=== PATIENT | female | born 1960 | race Caucasian/White ===

== ENCOUNTER 2022-11-05 10:58 | Outpatient (REF) | payer MEDICARE, MEDICAID, SELFPAY ==
--- NOTE | ~2022-11-05 | MM_ITS ---
EXAMINATION: BONE DENSITOMETRY CLINICAL INDICATION: Osteoporosis. COMPARISON: Baseline BD dated 02/22/2008. TECHNIQUE: Using a [employer] DXA System (software version: 13.1) manufactured by [employer], dual-energy x-ray absorptiometry was performed of the lumbar spine and left hip. The images are of good technical quality. Summary results are attached. FINDINGS: AP SPINE L1-L2 (excluding L3 and L4): The data of L1-L4 has been changed to exclude the L3 and L4 vertebral bodies, because metallic hardware at these levels may cause overestimation of lumbar spine density. Current: BMD 0.844 g/cm2, Z-score -1.1, T-score -2.7, osteoporosis, 12.1% decrease from baseline (<5% change is not significant). Baseline: BMD 0.960 g/cm2. LEFT FEMUR, NECK: Current: BMD 0.674 g/cm2, Z-score -1.1, T-score -2.6, osteoporosis. Baseline: BMD 0.967 g/cm2. LEFT FEMUR, TOTAL: Current: BMD 0.657 g/cm2, Z-score -1.6, T-score -2.8, osteoporosis, 30.6% decrease from baseline (<5% change is not significant). Baseline: BMD 0.947 g/cm2. IDENTIFIED RISK FACTORS: Early menopause, height loss, bilateral oophorectomy, history of fracture (adult), hysterectomy, low calcium intake, tobacco use (current smoker), secondary osteoporosis. HISTORY OF FRACTURE: Shoulder. MEDICATIONS: None listed. MM/XR DEXA axial skeleton IMPRESSION: 1. DIAGNOSIS: Severe osteoporosis based on the lowest T-score value of -2.8 in the total femur and history of fracture of shoulder applying World Health Organization criteria. 2. 10-YEAR FRACTURE RISK PREDICTION, FRAX: According to the guidelines, FRAX calculation should only be performed on patients in the osteopenia bone density category. Therefore, FRAX was not performed on this patient. 3. Treatment Recommendations: NOF guidelines recommend consideration for treatment in postmenopausal women and men age 50 and older presenting with the following: -A hip or vertebral (clinical or morphometric) fracture. -T-score less than or equal to -2.5 at the femoral neck or spine after appropriate evaluation to exclude secondary causes. -Low bone mass at the hip or spine and a 10-year fracture probability by FRAX of greater than or equal to 3% for hip fracture or greater than or equal to 20% for major osteoporotic fracture based on the [place] adapted WHO algorithm. 4. Other Recommendations: All treatment decisions require clinical judgment and consideration of individual patient factors, including patient preferences, comorbidities, previous drug use, risk factors not captured in the FRAX model (e.g. frailty, falls, vitamin D deficiency, increased bone turnover, interval significant decline in bone density) and possible under or overestimation of fracture risk by FRAX. Additional medical evaluation for secondary cause of low bone mineral density may be appropriate. FUTURE SCAN RECOMMENDATION: People with diagnosed cases of osteoporosis or at high risk for fracture should have regular bone mineral density tests. For patients eligible for Medicare, routine testing is allowed once every 2 years. The testing frequency can be increased to one year for patients who have rapidly progressing disease, those who are receiving or discontinuing medical therapy to restore bone mass, or have additional risk factors.
== END 2022-11-05 10:59 | disposition home or self-care (01) ==
LOC: HO.MAMMO 10:58
PROVIDERS: PCP Internal Medicine; Visit Provider Internal Medicine
DX: Z13.820 Encounter for screening for osteoporosis (principal); Z78.0 Asymptomatic menopausal state; M54.12 Radiculopathy, cervical region
CPT/HCPCS: 77080

== ENCOUNTER 2023-05-03 11:48 | Outpatient (REF) | payer MEDICARE, MEDICAID, SELFPAY ==
--- NOTE | ~2023-05-03 | XR_ITS ---
EXAMINATION: XR FOOT, RIGHT CLINICAL INFORMATION: Right great toe pain COMPARISON: None available. TECHNIQUE: AP, lateral, and oblique views of the right foot. FINDINGS: Bone alignment is normal. No fracture or dislocation. Disc spaces are normal. There is soft tissue swelling of the distal great toe. There are several adjacent small radiopaque soft tissue densities, largest measuring 2 mm, projecting over the soft tissues of the distal phalanx of the great toe, question associated with the nail bed. XR/XR foot RT min 3V IMPRESSION: Soft tissue swelling of the distal great toe and several adjacent small radiopaque soft tissue densities, question related to the nail bed.
== END 2023-05-03 11:49 | disposition home or self-care (01) ==
LOC: HO.HHCX 11:48
PROVIDERS: Visit Provider Emergency Medicine
DX: M79.674 Pain in right toe(s) (principal); L30.9 Dermatitis, unspecified
CPT/HCPCS: 73630

== ENCOUNTER 2023-05-12 13:59 | Outpatient (REF) | payer MEDICARE, MEDICAID, SELFPAY ==
[2023-05-12 16:43] LABS: Anion Gap 12 (12-20); Blood Urea Nitrogen 13 mg/dL (9-16); Calcium 9.7 mg/dL (8.4-10.2); Carbon Dioxide 30 mmol/L (22-29); Chloride 104 mmol/L (96-108); Estimated Glomerular Filt Rate > 60; Glucose Random 104 mg/dL (60-115); Sodium 142 mmol/L (135-145)
== END 2023-05-12 14:00 | disposition home or self-care (01) ==
LOC: HO.HHCL 13:59
PROVIDERS: Visit Provider Internal Medicine
DX: Z13.89 Encounter for screening for other disorder (principal)
CPT/HCPCS: 36415; 80048; 82306

== ENCOUNTER 2023-05-12 14:07 | Outpatient (REF) | payer MEDICARE, MEDICAID, SELFPAY ==
--- NOTE | ~2023-05-12 | XR_ITS ---
EXAMINATION: XR HIP, LEFT CLINICAL INFORMATION: Radiculopathy. Pain. COMPARISON: None available. TECHNIQUE: Two views of the left hip. FINDINGS: No fracture. Alignment is anatomic. Hip joint space is maintained. Soft tissues are unremarkable. XR/XR hip LT min 2V IMPRESSION: Normal left hip.
--- NOTE | ~2023-05-12 | XR_ITS ---
EXAMINATION: Bilateral knee replacement CLINICAL INFORMATION: Pain COMPARISON: None. TECHNIQUE: 2 views of each knee FINDINGS: Right: Bone alignment is normal. No fracture or dislocation. Normal joint spaces. No joint effusion. Left: Bone alignment is normal. No fracture or dislocation. Normal joint spaces. No joint effusion. Soft tissue calcification or ossification adjacent to the medial tibial plateau likely related to old trauma to the medial collateral ligament. XR/XR knee LT 2V IMPRESSION: No acute findings. Question old trauma to the left medial collateral ligament otherwise unremarkable exam.
--- NOTE | ~2023-05-12 | XR_ITS ---
EXAMINATION: XR LUMBOSACRAL SPINE WITH OBLIQUES CLINICAL INFORMATION: Radiculopathy and pain COMPARISON: None available. TECHNIQUE: AP, both oblique, and lateral views of the lumbar spine. Lateral view of the lumbosacral junction. FINDINGS: Mild curvature of the lumbar sacral spine to the right. Bone alignment otherwise normal. No fracture or dislocation. Postsurgical changes with disc hardware at L4-L5. Disc spaces are otherwise normal. Lower lumbar spine facet arthritis. Atherosclerotic disease. XR/XR lumbar spine 4V min IMPRESSION: Postsurgical changes at L4-L5. Lower lumbar facet arthritis.
--- NOTE | ~2023-05-12 | XR_ITS ---
EXAMINATION: Bilateral knee replacement CLINICAL INFORMATION: Pain COMPARISON: None. TECHNIQUE: 2 views of each knee FINDINGS: Right: Bone alignment is normal. No fracture or dislocation. Normal joint spaces. No joint effusion. Left: Bone alignment is normal. No fracture or dislocation. Normal joint spaces. No joint effusion. Soft tissue calcification or ossification adjacent to the medial tibial plateau likely related to old trauma to the medial collateral ligament. XR/XR knee RT 2V IMPRESSION: No acute findings. Question old trauma to the left medial collateral ligament otherwise unremarkable exam.
== END 2023-05-12 14:08 | disposition home or self-care (01) ==
LOC: HO.HHCX 14:07
PROVIDERS: Visit Provider Internal Medicine
DX: M54.10 Radiculopathy, site unspecified (principal); M25.552 Pain in left hip; M25.561 Pain in right knee; M25.562 Pain in left knee; G89.29 Other chronic pain; M81.8 Other osteoporosis without current pathological fracture
CPT/HCPCS: 36415; 72110; 73502; 73560; 80048; 82306

== ENCOUNTER 2024-01-12 11:36 | Outpatient (REF) | payer MEDICARE, MEDICAID, SELFPAY ==
[2024-01-12 13:16] LABS: MANUAL DIFF FLAG NO
[2024-01-12 13:28] LABS: Basophils Absolute Auto 0.1 X10*3/uL (0.0-0.2); Basophils Percent Auto 0.7 % (0-2); Eosinophils Absolute Auto 0.3 X10*3/uL (0.0-0.4); Eosinophils Percent Auto 2.4 % (0-4); Hematocrit 34.3 % (37.0-47.0); Hemoglobin 10.9 g/dl (12.0-16.0); Imm Gran Abs Auto 0.04 X10*3/uL (0.00-0.03); Imm Gran Pct Auto 0.4 % (0.0-0.4); Lymphocytes Absolute Auto 2.9 X10*3/uL (1.2-4.9); Lymphocytes Percent Auto 27.2 % (20-40); Mean Corpuscular HGB Conc 31.8 g/dl (31.0-35.0); Mean Corpuscular Hemoglobin 28.2 pg (27.0-33.0); Mean Corpuscular Volume 88.9 fL (80.0-98.0); Mean Platelet Volume 9.2 fL (9.4-12.3); Monocytes Absolute Auto 0.8 X10*3/uL (0.1-1.2); Monocytes Percent Auto 7.8 % (2-11); Neutrophils Absolute Auto 6.6 x10*3/uL (2.0-8.3); Neutrophils Percent Auto 61.5 % (45-73); Platelet Count 617 X10*3/uL (160-400); Red Blood Count 3.86 X10*6/uL (4.20-5.50); Red Cell Distribution Width 13.3 % (11.0-16.0); White Blood Count 10.8 X10*3/uL (4.8-10.8)
[2024-01-12 14:01] LABS: Alanine Aminotransferase 13 U/L (0-31); Alkaline Phosphatase 98 U/L (39-117); Amylase 27 U/L (28-100); Anion Gap 9 (12-20); Aspartate Amino Transferase 19 U/L (5-31); Bilirubin Total 0.2 mg/dL (0.0-1.0); Blood Urea Nitrogen 14 mg/dL (9-16); Calcium 9.7 mg/dL (8.4-10.2); Carbon Dioxide 31 mmol/L (22-29); Chloride 102 mmol/L (96-108); Estimated Glomerular Filt Rate > 60; Glucose Random 85 mg/dL (60-115); Lipase 9 U/L (8-78); Potassium 3.6 mmol/L (3.3-5.1); Sodium 138 mmol/L (135-145)
[2024-01-12 14:21] LABS: Erythrocyte Sedimentation Rate 88 MM/HR (0-20)
== END 2024-01-12 11:37 | disposition home or self-care (01) ==
LOC: HO.HHCL 11:36
PROVIDERS: Visit Provider Internal Medicine
DX: R10.11 Right upper quadrant pain (principal); R10.12 Left upper quadrant pain; K80.63 Calculus of gallbladder and bile duct with acute cholecystitis with obstruction
CPT/HCPCS: 36415; 80053; 82150; 83690; 85025; 85652

== ENCOUNTER 2024-01-16 16:03 | Outpatient (REF) | payer MEDICARE, MEDICAID, SELFPAY ==
--- NOTE | ~2024-01-16 | US_ITS ---
EXAMINATION: US ABDOMEN COMPLETE CLINICAL INFORMATION: Upper abdominal pain, s/p cholecystectomy. COMPARISON: None available. TECHNIQUE: Real-time imaging of the abdominal viscera. Limited visualization due to bowel gas. FINDINGS: PANCREAS: Limited visualization of pancreatic tail and head. Imaged portion of pancreatic body is unremarkable. ABDOMINAL AORTA: Unremarkable. INFERIOR VENA CAVA: Visualized portions are normal. LIVER: Mild intrahepatic biliary ductal dilatation. Air within intrahepatic bile ducts. Limited visualization. Hepatic parenchymal echogenicity is unremarkable. GALLBLADDER: Gallbladder is surgically absent. COMMON BILE DUCT: Stent present within extrahepatic bile duct. Common duct measures 0.8-0.9 cm in diameter. Limited visualization due to bowel gas. RIGHT KIDNEY: No hydronephrosis. No renal calculi. Limited visualization. The kidney measures 11.7 cm in maximum dimension. LEFT KIDNEY: No hydronephrosis. No renal calculi. Limited visualization. The kidney measures 10.1 cm in maximum dimension. SPLEEN: Normal. The spleen measures 8.9 cm in maximum dimension. FREE FLUID: Small amount of free fluid adjacent to the lower aspect of the liver. US/US abdomen complete IMPRESSION: 1. Status post cholecystectomy. Mild intrahepatic biliary ductal dilatation. Air within intrahepatic bile ducts. Common duct measures 0.8-0.9 cm in diameter. Stent present within extrahepatic bile duct. 2. Small amount of free fluid adjacent to the lower aspect of the liver. This study was presented today January 17, 2024 for interpretation. Stat results provided at this time as requested by referring provider.
== END 2024-01-16 16:04 | disposition home or self-care (01) ==
LOC: HO.US 16:03
PROVIDERS: PCP Internal Medicine; Visit Provider Internal Medicine
DX: R10.11 Right upper quadrant pain (principal); R10.12 Left upper quadrant pain; K80.63 Calculus of gallbladder and bile duct with acute cholecystitis with obstruction
CPT/HCPCS: 76700

== ENCOUNTER 2024-09-14 13:44 | Outpatient (REF) | payer MEDICARE, MEDICAID, SELFPAY ==
--- NOTE | ~2024-09-14 | XR_ITS ---
EXAMINATION: XR CHEST CLINICAL INFORMATION: dyspnea on exertion COMPARISON: None available. TECHNIQUE: 2 views of the chest were obtained. FINDINGS: No significant abnormality is noted involving the heart, lungs, mediastinum, bony thorax or soft tissues. Status post right shoulder total arthroplasty XR/XR chest 2V IMPRESSION: Unremarkable examination. Electronically signed by: Leo Castillo MD 09/16/2024 11:01 AM MAK
--- OUTSIDE RECORDS SUMMARY | 2024-09-14 13:46 | XMS_ITS | Continuity of Care Document ---
Author Organization [facility] Diabetes Address [address] [place] [address]- Care Team Providers Care Vessel Welder Name Role Phone Melinda Durham MD, Rosemarie Mendez Primary Care Physici an [id number] Date(s): 05/03/24 - 08/31/24 [facility] Diabetes [address] [place] [id number] Attending Physician: Gloria Jameson MD Admitting Physician: Gloria Jameson MD Referring Physician: Rosemarie Murillo MD Encounter Type: Pre-OutPatient One Time Allergies, Adverse Reactions, Alerts Substance Criticality Severity Reaction Reaction Severity Status Atarax tongue swells Active Topamax headaches Active Keppra severe headaches Act jose LaMICtal severe headaches Act jose Immunizations Given and Recorded Vaccine Date Status Refusal Reason pneumococcal 23-valent vaccine 03/17/12 Given influenza virus vaccine, inactivated 1 07/27/10 Gi alli 1Admin Note: per pt she received it at [facility] this year Medications amLODIPine 5 mg oral tablet 0 Refills, Maintenance, 03/08/24 11:11:00 AM EDT, Partial fill upon patient request if the prescription is for a schedule II opioid drug. Start Date: 03/08/24 Status: Ordered Repeat number: 1 aspirin 81 mg oral capsule 1 capsule = 81 mg, By Mouth, Daily, do not exceed 48 capsules in 24 hours, # 30 capsule, 0 Refills,Maintenance, 03/28/24 10:53:00 AM EDT, Capsule, Partial fill upon patient request if the prescriptionis for a schedule II opioid drug. Start Date: 03/28/24 Status: Ordered Quantity: 30.0 Unit: capsule Repeat number: 1 calcium (as carbonate)-vitamin D 600 mg-62.5 mcg (2500 intl units) oral capsule 2 capsule, By Mouth, Daily, # 120 capsule, 0 Refills, Maintenance, 03/28/24 10:52:00 AM EDT, Capsule,Partial fill upon patient request if the prescription is for a schedule II opioid drug. Start Date: 03/28/24 Status: Ordered Quantity: 120.0 Unit: capsule Repeat number: 1 citalopram 20 mg oral tablet 20 mg, 1, tablet, By Mouth, Daily, # 30 tablet, Refills 0, Maintenance, 07/27/23 1:37:00 PM EDT, Partial fill upon patient request if the prescription is for a schedule II opioid drug. Start Date: 07/27/23 Status: Ordered Quantity: 30.0 Unit: tablet Repeat number: 1 fluticasone/umeclidinium/vilanterol 100 mcg-62.5 mcg-25 mcg/inh inhalation powder 1 puffs, Inhalation, Daily, at the same time every day, # 60 each, 11 Refills, Maintenance, 04/16/2412:07:00 PM EDT, Powder, [facility]/pharmacy #[id number], Partial fill upon patient request if the prescription is for a schedule II opioid drug., 170, cm, 03/28/24 10:53:00 EDT, Height, 61.5, kg, 03/08/24 11:15:00 EDT, Dry Weight Start Date: 04/16/24 Status: Ordered Quantity: 60.0 Unit: each Repeat number: 12 morphine 30 mg/12 to 24 hr oral capsule, extended release = 30 mg, By Mouth, Every 12 hours, # 10 capsule, 0 Refills, Maintenance, 01/05/19 6:36:02 AM EDT, ERCapsule Start Date: 01/05/19 Status: Ordered Quantity: 10.0 Unit: capsule Repeat number: 1 oxyCODONE 10 mg oral tablet 2 tablet = 20 mg, By Mouth, Every 8 hours, PRN as needed for pain, 0 Refills, Maintenance, 01/28/21 1:39:00 PM EDT, Tablet, Partial fill upon patient request if the prescription is for a schedule II opioid drug. Start Date: 01/28/21 Status: Ordered Repeat number: 1 simvastatin 20 mg oral tablet 20 mg, 1, tablet, By Mouth, Daily at bedtime, Refills 0, Maintenance, 12/26/18 11:36:49 AM EDT Start Date: 12/26/18 Status: Ordered Repeat number: 1 simvastatin 20 mg oral tablet 20 mg, 1, tablet, By Mouth, Daily at bedtime, # 30 tablet, Refills 0, Maintenance, 12/24/23 2:14:00 AM EDT, Partial fill upon patient request if the prescription is for a schedule II opioid drug. Start Date: 12/24/23 Status: Ordered Quantity: 30.0 Unit: tablet Repeat number: 1 Vitamin D3 oral tablet 1 tablet = 10 mcg, By Mouth, Daily, # 30 tablet, 0 Refills, Maintenance, 12/24/23 4:25:00 AM EDT, Tablet, Partial fill upon patient request if the prescription is for a schedule II opioid drug. Start Date: 12/24/23 Status: Ordered Quantity: 30.0 Unit: tablet Repeat number: 1 Problem List Condition Confirmation Course Effective Dates Status H ealth Status Informant Abdominal hysterectomy Confirmed Active ; Anxiety Confirmed Active Cervical post-laminectomy syndrome Confirmed Active Cervical spinal fusion 1 Confirmed 12/09/08 Active ; Chronic pain Confirmed Active Cigarette smoker Confirmed Active Cocaine dependence in remission Confirmed Active Decompression laminectomy of lumbar spine 2 Confirmed 08/18/09 Active Depression Confirmed Active Drug interaction 3 Confirmed Active Drug-induced constipation Confirmed Active Failed back syndrome Confirmed Active FH - Alcoholism 4 Confirmed Active Fibromyalgia Confirmed Active Fusion of lumbar spine 5 Confirmed 05/22/09 Active Hip pain Confirmed Active Hyperlipidemia Confirmed Active IBS - Irritable bowel syndrome Confirmed Active Myofascial pain Confirmed Active Neck pain Confirmed Active Neuropathic pain 6 Confirmed Active Not getting enough sleep Confirmed Active Osteoporosis Confirmed 05/12/23 Active Other Pain Disorders Related to Psychological Factors Confirmed Active PTSD - Post-traumatic stress disorder Confirmed Active COPD type A Confirmed Active Radicular syndrome of lower limbs 7 Confirmed Active Radicular syndrome of upper limbs 8, 9 Confirmed Active 1Anterior cervical C4-C5 disc excision, decompression, interbody fusion with allograft bone wedge and [place] plate and screws; Dr. Vick Mason at [facility] 2L4-5, L3-4 with disc excision L4-5 and exporation L4-5 fusion , Dr. Vick Mason (for new right overleft leg pain following 06/15/09 L4-5 ant/post fusion) 3cholesterol lowering agent, antidepressant, and opioid co treatment (current); history of total CPK>80 and < 190 4and suubstance use 5Anterior partial corpectomy disc excision, interbody fusion with Danek LT titanium cages and InFUSEBMP L4-L5; by Dr. Vick Mason at [facility] 6lower extremity 7left lower extremity in the L5 distribution 8s/p cervical disc surgery 12/09/08 using anterior approach, C4-C5 including bony fusion and hardware/ neck pain improved, resolution of right shoulder and arm pain 9herniation at C4-5, with nerve root impingement at C5 demonstrated on MRI 10/30/08. Pain along the medial scapular border on the right c/w C5 on exam 10/2008 Social History Social History Type Response Tobacco Use: 4 or less cigar ettes(less than 1/4 pack)/day in last 30 days. Other: near daily VAPE use. Sex Sex Representation Female (finding) Patient Care team information Care Team Personnel Name: Melinda Durham MD, Rosemarie Mendez Position: [facility] Outreach Member Role: PCP Address: [address] [place] [address] [address] [place] [phone]- Telecom: Name: Stephanie Carlton NP Position: [facility] PCO Associate Professional Member Role: Primary Care Nurse Address: [address] [place] [phone]- Telecom: Name: Siena Figueroa RN Position: [facility] ED RN W/OE and Tasks Member Role: Primary Care Nurse Care Team Related Persons Name: INDRA CARLTON Name: LATONYA CARLTON Insurance Providers Guarantor name: IGNACIO BIANKA Health Plan Information #: 1 Payer: MEDICARE PART B OUTPT Member Number: [id number] Policy Number: NA Group Number: NA Health Plan Information #: 2 Payer: MEDICARE PART B OUTPT Member Number: [id number] Policy Number: NA Group Number: NA Health Plan Information #: 3 Payer: [facility] Member Number: NA Policy Number: NA Group Number: NA
[2024-09-14 16:13] LABS: MANUAL DIFF FLAG NO
[2024-09-14 16:20] LABS: Basophils Absolute Auto 0.1 X10*3/uL (0.0-0.2); Basophils Percent Auto 1.1 % (0-2); Eosinophils Absolute Auto 0.3 X10*3/uL (0.0-0.4); Eosinophils Percent Auto 3.7 % (0-4); Hematocrit 37.8 % (37.0-47.0); Hemoglobin 12.4 g/dl (12.0-16.0); Imm Gran Abs Auto 0.03 X10*3/uL (0.00-0.03); Imm Gran Pct Auto 0.4 % (0.0-0.4); Lymphocytes Absolute Auto 2.9 X10*3/uL (1.2-4.9); Lymphocytes Percent Auto 34.5 % (20-40); Mean Corpuscular HGB Conc 32.8 g/dl (31.0-35.0); Mean Corpuscular Hemoglobin 27.9 pg (27.0-33.0); Mean Corpuscular Volume 84.9 fL (80.0-98.0); Mean Platelet Volume 9.6 fL (9.4-12.3); Monocytes Absolute Auto 0.8 X10*3/uL (0.1-1.2); Neutrophils Absolute Auto 4.3 x10*3/uL (2.0-8.3); Neutrophils Percent Auto 51.3 % (45-73); Platelet Count 285 X10*3/uL (160-400); Red Blood Count 4.45 X10*6/uL (4.20-5.50); White Blood Count 8.4 X10*3/uL (4.8-10.8)
[2024-09-14 16:39] LABS: Estimated Average Glucose 117 mg/dL; Hemoglobin A1C 122.1028 umol/L; Hemoglobin A1c % 5.7 % (<6.0); Total Hemoglobin (HGBA1C) 3187.8984 umol/L
[2024-09-14 16:47] LABS: B Type Natriuretic Peptide 42 pg/mL (<100)
[2024-09-14 17:09] LABS: Alanine Aminotransferase 21 U/L (0-31); Albumin Level 4.4 g/dL (3.5-5.0); Alkaline Phosphatase 80 U/L (39-117); Anion Gap 11 (12-20); Aspartate Amino Transferase 25 U/L (5-31); Bilirubin Total 0.3 mg/dL (0.0-1.0); Blood Urea Nitrogen 11 mg/dL (9-16); Calcium 9.2 mg/dL (8.4-10.2); Carbon Dioxide 30 mmol/L (22-29); Chloride 105 mmol/L (96-108); Cholesterol 162 mg/dL (<200); Estimated Glomerular Filt Rate > 60; Glucose Random 80 mg/dL (60-115); HDL Cholesterol 57 mg/dL (>40); LDL Cholesterol Calculated 88 mg/dL (<100); Potassium 3.1 mmol/L (3.3-5.1); Sodium 143 mmol/L (135-145); Total Protein 8.2 g/dL (6.5-8.0); Triglycerides 86 mg/dL (<150)
[2024-09-14 17:16] LABS: Alanine Aminotransferase 15 U/L (0-31); Albumin Level 4.4 g/dL (3.5-5.0); Alkaline Phosphatase 80 U/L (39-117); Anion Gap 12 (12-20); Aspartate Amino Transferase 25 U/L (5-31); Bilirubin Total 0.3 mg/dL (0.0-1.0); Blood Urea Nitrogen 12 mg/dL (9-16); Calcium 9.3 mg/dL (8.4-10.2); Carbon Dioxide 29 mmol/L (22-29); Chloride 106 mmol/L (96-108); Cholesterol 162 mg/dL (<200); Estimated Glomerular Filt Rate > 60; Glucose Random 80 mg/dL (60-115); HDL Cholesterol 57 mg/dL (>40); LDL Cholesterol Calculated 88 mg/dL (<100); Potassium 3.5 mmol/L (3.3-5.1); Sodium 143 mmol/L (135-145); Total Protein 8.3 g/dL (6.5-8.0); Triglycerides 85 mg/dL (<150)
[2024-09-14 17:24] LABS: TSH reflex Free T4 1.02 uIU/mL (0.32-4.0)
== END 2024-09-14 13:45 | disposition home or self-care (01) ==
LOC: HO.HHCX 13:44
PROVIDERS: Internal Medicine; Visit Provider Nurse Practitioner Family
DX: Z13.1 Encounter for screening for diabetes mellitus (principal); R60.9 Edema, unspecified; I10 Essential (primary) hypertension; R06.00 Dyspnea, unspecified
CPT/HCPCS: 36415; 71046; 80053; 80061; 83036; 83880; 84443; 85025

== ENCOUNTER 2024-09-14 13:59 | Outpatient (REF) | payer MEDICARE, MEDICAID, SELFPAY ==
--- OUTSIDE RECORDS SUMMARY | 2024-09-14 14:02 | XMS_ITS | Continuity of Care Document ---
Author Organization [facility] Endocrin[facility] gy and Diabetes Address [address] [place] [phone]- Care Team Providers Care Ship Carpenter Name Role Phone Melinda Durham MD, Rosemarie Mendez Primary Care Physici an Encounter [facility] Date(s): 08/01/24 - 08/31/24 [facility] End[facility] [address] [place] [id number] Attending Physician: AdmSubhash lubin Admitting Physician: AdmSubhash lubin Referring Physician: Admtr, [id number] Encounter Type: Triage Allergies, Adverse Reactions, Alerts Substance Criticality Severity Reaction Reaction Severity Status Atarax tongue swells Active LaMICtal severe headaches Act jose Topamax headaches Active Keppra severe headaches Act jose Immunizations Given and Recorded Vaccine Date Status Refusal Reason pneumococcal 23-valent vaccine 03/17/12 Given influenza virus vaccine, inactivated 1 07/27/10 Gi alli 1Admin Note: per pt she received it at [facility] this year Medications amLODIPine 5 mg oral [...] 11 Refills, Maintenance, 04/16/2412:07:00 PM EDT, Powder, [facility]/pharmacy #[id number], Partial fill upon patient request if [...] interbody fusion with allograft bone wedge and [place] plate and screws; Dr. Vick Mason at [facility] 2L4-5, L3-4 with disc excision L4-5 [...] InFUSEBMP L4-L5; by Dr. Vick Mason at [facility] 6lower extremity 7left lower extremity in [...] Name: Melinda Durham MD, Rosemarie Mendez Position: [facility] Outreach Member Role: PCP Address: [address] [place] [address] [address] [place] [phone]- Telecom: Name: Bianka HSIEH, Stephanie Anthony Position: [facility] PCO Associate Professional Member Role: Primary Care Nurse Address: [address] [place] [phone]- Telecom: Name: Siena Figueroa RN Position: [facility] ED RN W/OE and Tasks Member Role: Primary Care Nurse Care Team Related Persons Name: INDRA CARLTON Name: LATONYA CARLTON Insurance Providers Guarantor name: IGNACIO BIANKA Health Plan Information #: 1 Payer: MEDICARE PART B OUTPT Member Number: NA Policy Number: NA Group Number: NA Health Plan Information #: 2 Payer: [facility] Member Number: NA Policy Number: NA Group Number: NA
== END 2024-09-14 14:00 | disposition home or self-care (01) ==
LOC: HO.HHCL 13:59
PROVIDERS: Visit Provider Nurse Practitioner Family
DX: Z13.89 Encounter for screening for other disorder (principal)

== ENCOUNTER 2024-12-28 12:40 | Outpatient (REF) | payer MEDICARE, MEDICAID, SELFPAY ==
--- OUTSIDE RECORDS SUMMARY | 2024-12-28 14:33 | XMS_ITS | Encounter Summary ---
Author Organization [employer] Address [address] [place] [address] [address] [place] [address] Care Team Providers Care Mold Making Pl[employer] Sheets Supervisor Name Role Phone Rosemarie Murillo MD Primary Care Provide r Reason for Visit * Reason Comments Stool Color Change Encounter Details Date Type Department Care Team (Late st Contact Info) Description 12/28/2024 12:00 PM EDT Office Visit [facility] MEDICINE [address] [place], [place] [phone] Sandra Zhao MD [address] [place] [address] RUQ pain (Primary Dx); Seborrheic keratoses; Generalized abdominal pain; Fatty (change of) liver, not elsewhere classified; Encounter for screening for other viral diseases Social History Tobacco Use Types Packs/Day Years Used Date Smoking Tobacco: Former Cigarettes Passive Smoke Exposure: Past Smokeless Tobacco: Never Tobacco Cessation:Counseling Given: Not Answered Alcohol Use Standard Drinks/Week Comments Never 0 (1 standard drink = 0.6 oz pur e alcohol) PHQ-2 Answer Date Recorded Patient Health Questionnaire-2 Score 0 12/09/2022 Alcohol Answer Date Recorded Frequency of Alcohol Consumption Not on file 06/22/2024 Average Number of Drinks Not on file 024 Frequency of Binge Drinking Not on file 05/28 Score 0 06/22/2024 Housing Stability Answer Date Recorded What is your housing situation today? I have jevon jones 01/02/[address] you li ve. Do you have problems with any of the following? None of the above 01/02/2024 Food Insecurity Answer Date Recorded Within the past 12 months, y ou worried that your food would run out before you got money to buy more: Never True 01/02/2024 Within the past 12 months,th e food you bought just didn't last and you didn't have enough money to get more: Never True 04/2024 Transportation Answer Date Recorded In the past 12 months, has l ack of transportation kept you from medical appts, meetings, work or from getting things needed for daily living? No 01/02/2024 Utilities Answer Date Recorded In the past 12 months, has t he electric, gas, oil or water company threatened to shut off services in your home? No 01/02/2024 Depression Answer Date Recorded Patient Health Questionnaire-2 Score 0 01/12/2024 Comments Unknown Sex and Gender Information Value Date Recorded Sex Assigned at Female 07/26/2022 10:19 AM EDT Legal Sex Female 10:19 AM EDT Gender Identity Female 07/26/2022 10:19 AM EDT Sexual Orientation Straight 07/26/2022 10 :19 AM EDT documented as of this encounter Last Filed Vital Signs Vital Sign Reading Time Taken Comments Blood Pressure 124/70 12/28/2024 12:09 PM EDT Pulse 83 12/28/2024 12:09 PM EDT Temperature 36.1 ??C (97 ??F) 12/28/2024 12:09 PM EDT Respiratory Rate 16 12/28/2024 12:09 PM EDT Oxygen Saturation 97% 12/28/2024 12:09 PM EDT Inhaled Oxygen Concentration - - Weight 66.2 kg (146 lb) 12/28/2024 12:09 PM EDT Height 170.2 cm (5' 7 ) 12/28/2024 12:09 PM EDT Body Mass Index 22.87 12/28/2024 12:09 PM EDT documented in this encounter Plan of Treatment Scheduled Orders Name Type Priority Associated Diagnoses Orde r Schedule Hepatic Function Panel Lab Routine Generalized abdominal pain Expected: 12/28/2024 (Approximate), Expires: 12/28/2025 Gamma Glutamyl Transferase (GGT) Lab Routine Generalized abdominal pain Fatty (change of) liver, not elsewhere classified Expected: 12/28/2024 (Approximate), Expires: 12/28/2025 Hepatitis Panel, General Lab Routine Generalized abdominal pain Encounter for screening for other viral diseases Expected: 12/28/2024 (Approximate), Expires: 12/28/2025 Lipase Lab Routine RUQ pain Expected: 12/28/2024, Expires: 12/28/2025 documented as of this encounter Visit Diagnoses Diagnosis RUQ pain- Primary Abdominal pain, right upper quadrant Seborrheic keratoses Generalized abdominal pain Abdominal pain, generalized Fatty (change of) liver, not elsewhere classified Encounter for screening for other viral diseases documented in this encounter Care Teams Mold Making Pl[employer] Sheets Supervisor Relationship Specialty Start Date End Date Rosemarie Murillo MD [address] [place] [id number] PCP - General Family Medicine 04/26/19 documented as of this encounter
--- OUTSIDE RECORDS SUMMARY | 2024-12-28 14:33 | XMS_ITS | Encounter Summary ---
Author Organization [employer] Address [address] [place] [address] [address] [place] [address] Care Team Providers Care Safety Clothing And Equipment Developer Name Role Phone Rosemarie Murillo MD Primary Care Provide r Reason for Visit * Reason Onset Date Comments status 10/20/2022 Encounter Details Date Type Department Care Team (Late st Contact Info) Description 10/20/2022 Refill [facility] [address] [place] [address] Rosemarie Murillo MD [address] [place] [address] Cervical radiculitis Social History Tobacco Use Types Packs/Day Years Used Date Smoking Tobacco: Never Assessed Comments Unknown Sex and Gender Information Value Date Recorded Sex Assigned at Female 07/26/2022 10:19 AM EDT Legal Sex Female 10:19 AM EDT Gender Identity Female 07/26/2022 10:19 AM EDT Sexual Orientation Straight 07/26/2022 10 :19 AM EDT documented as of this encounter Miscellaneous Notes * Telephone Encounter - Frederick Childress - 10/20/2022 1:49 PM EST Tc from pt requesting status on med refill Oxycodone 10 mg and ms contin 30 mg documented in this encounter Plan of Treatment Not on file documented as of this encounter Visit Diagnoses Diagnosis Cervical radiculitis Brachial neuritis or radiculitis nos documented in this encounter Care Teams Safety Clothing And Equipment Developer Relationship Specialty Start Date End Date Rosemarie Murillo MD [address] [place] [address] PCP - General Family Medicine 04/26/19 documented as of this encounter
--- OUTSIDE RECORDS SUMMARY | 2024-12-28 14:33 | XMS_ITS | Encounter Summary ---
Author Organization [employer] Address [address] [place] [address] [address] [place] [address] Care Team Providers Care Manager Operations Name Role Phone Rosemarie Murillo MD Primary Care Provide r Reason for Visit * Reason Onset Date Comments Med Refill 04/25/2024 Encounter Details Date Type Department Care Team (Late st Contact Info) Description 04/25/2024 Refill [facility] [address] [place], [place] [phone] Rosemarie Murillo MD [address] [place] [address] Cervical radiculitis Social History Tobacco Use Types Packs/Day Years Used Date Smoking Tobacco: Former Cigarettes Passive Smoke Exposure: Past Smokeless Tobacco: Never Alcohol Use Standard Drinks/Week Comments Never 0 (1 standard drink = 0.6 oz pur e alcohol) PHQ-2 Answer Date Recorded Patient Health Questionnaire-2 Score 0 12/09/2022 Housing Stability Answer Date Recorded What is [...] AM EDT documented as of this encounter Plan of Treatment Not on file documented as of this encounter Visit Diagnoses Diagnosis Cervical radiculitis Brachial neuritis or radiculitis nos documented in this encounter Care Teams Manager Operations Relationship Specialty Start Date End Date Rosemarie Murillo MD [address] [place] [address] PCP - General Family Medicine 04/26/19 documented as of this encounter
--- OUTSIDE RECORDS SUMMARY | 2024-12-28 14:33 | XMS_ITS | Encounter Summary ---
Author Organization [employer] Address [address] [place] [address] [address] [place] [address] Care Team Providers Care Computer Designer Name Role Phone Rosemarie Murillo MD Primary Care Provide r Encounter Details Date Type Department Care Team (Late st Contact Info) Description 11/11/2022 Orders Only [facility] [address] [place], [place] [phone] Sandra Zhao MD [address] [place] [address] Age related osteoporosis, unspecified pathological fracture presence (Primary Dx) Social History Tobacco Use Types Packs/Day Years Used Date Smoking Tobacco: Every Day Cigarettes Smokeless Tobacco: Never Alcohol Use Standard Drinks/Week Comments Never 0 (1 standard drink = 0.6 oz pur e alcohol) Comments Unknown Sex and Gender Information Value Date Recorded Sex Assigned at Female 07/26/2022 10:19 AM EDT Legal Sex Female 10:19 AM EDT Gender Identity Female 07/26/2022 10:19 AM EDT Sexual Orientation Straight 07/26/2022 10 :19 AM EDT COVID-19 Exposure Response Date Recorded In the last 10 days, have yo u been in contact with someone who was confirmed or suspected to have Coronavirus/COVID-19? No / Unsure 10/29/2022 2:46 PM EST documented as of this encounter Plan of Treatment Scheduled Orders Name Type Priority Associated Diagnoses Orde r Schedule Vitamin D, 25-Hydroxy, Total, Immunoassay Lab Routine Age related osteoporosis, unspecified pathological fracture presence Expected: 05/11/2023, Expires: 11/11/2023 documented as of this encounter Visit Diagnoses Diagnosis Age related osteoporosis, unspecified pathological fracture presence- Primary documented in this encounter Care Teams Computer Designer Relationship Specialty Start Date End Date Rosemarie Murillo MD [address] [place] [id number] PCP - General Family Medicine 04/26/19 documented as of this encounter
--- OUTSIDE RECORDS SUMMARY | 2024-12-28 14:33 | XMS_ITS | Encounter Summary ---
Author Organization [employer] Address [address] [place] [address] [address] [place] [address] Care Team Providers Care Senior Administrative Services Officer Name Role Phone Rosemarie Murillo MD Primary Care Provide r Reason for Visit * Reason Onset Date Comments Med Refill 08/10/2024 Encounter Details Date Type Department Care Team (Late st Contact Info) Description 08/10/2024 Refill [facility] [address] [place], [place] [phone] Rosemarie Murillo MD [address] [place] [address] Cervical radiculitis Social History Tobacco Use Types [...] your housing situation today? I have jevon karen 01/02/[address] you li [...] nos documented in this encounter Care Teams Senior Administrative Services Officer Relationship Specialty Start Date End Date Rosemarie Murillo MD [address] [place] [id number] PCP - General Family Medicine 04/26/19 documented as of this encounter
--- OUTSIDE RECORDS SUMMARY | 2024-12-28 14:33 | XMS_ITS | Encounter Summary ---
Author Organization [employer] Address [address] [facility] [address] [place] [address] Care Team Providers Care Science Instructor Name Role Phone Rosemarie Murillo MD Primary Care Provide r Encounter Details Date Type Department Care Team (Latest Contact Info) Description 12/25/2024 Travel Social History Tobacco Use Types Packs/Day Years [...] is your housing situation today? I have jevno jones 01/02/[address] you [...] documented as of this encounter Visit Diagnoses Not on filedocumented in this encounter Care Teams Science Instructor Relationship Specialty Start Date End Date Rosemarie Murillo MD [address] [place] [address] PCP - General Family Medicine 04/26/19 documented as of this encounter
--- OUTSIDE RECORDS SUMMARY | 2024-12-28 14:33 | XMS_ITS | Clinical Summary ---
Author Organization [employer] Address [address] [place] [address] [address] [place] [address] Care Team Providers Care Quick Sketch Artist Name Role Phone Rosemarie Murillo MD Primary Care Provide r Allergies Active Allergy Reactions Criticality Noted Date Comments Hydroxyzine Swelling 11/20/2010 Other reaction(s): tongue swells Lamotrigine 09/21/2022 Other reaction(s): severe headaches Levetiracetam 09/21/2022 Other reaction(s): severe headaches Topiramate 09/21/2022 Other reaction(s): headaches Medications albuterol (2.5 MG/3ML) 0.083% nebulizer solution See Instructions , USE 1 VIAL IN NEBULIZER 4 TIMES DAILY, # 120 each, 11 Refills, Maintenance, 07/27/22 12:06:00 EDT, [facility], 169, cm, 07/12/22 10:26:00 EDT, Height, 56.5, kg, 04/30/22 20:06:00 EDT, Dry Weight 03/02/20 19 Active albuterol 108 (90 Base) MCG/ACT inhalerIndicati ons:Pulmonary emphysema, unspecified emphysema type (CMS/HCC) INHALE 2 PUFFS BY MOUTH 4 TIMES A DAY NEEDED FOR WHEEZING/SALLIE RTNESS OF BREATH 18 g 3 09/21/20 22 Active Trelegy Ellipta 100-62.5-25 MCG/ACT aerosol powder INHALE 1 PUFF BY MOUTH DAILY AT THE SAME TIME EVERYDAY 12/15/19 24 Active Cholecalciferol (Vitamin D3) 1000 units capsule Take 1 capsule by mouth Once daily. OTC 08/01/20 23 Active Calcium Carbonate (CALCIUM 600 PO) Take 1 capsule by mouth 2 times daily. OTC Active triamcinolone (Kenalog) 0.1 % creamIndication s:Dermatitis APPLY TOPICALLY IF NEEDED IN THE MORNING AND AT BEDTIME (PAIN AND SWELLING). 30 g 2 06/19/20 24 Active amLODIPine (Norvasc) 5 MG tabletIndicatio ns:Primary hypertension TAKE 1 TABLET BY MOUTH EVERY DAY IN THE MORNING 90 tablet 1 10/30/19 25 Active lidocaine (Lidoderm) 5 % patchIndication s:Chronic midline thoracic back pain APPLY 1 PATCH IN THE MORNING REMOVE AND DISCARD PATCH WITHIN 12 HOURS OR DIRECTED 30 patch 1 11/13/19 25 Active citalopram (CeleXA) 20 MG tabletIndicatio ns:Chronic recurrent major depressive disorder (CMS/HCC) TAKE 1 TABLET BY MOUTH EVERY DAY IN THE MORNING 90 tablet 12/14/19 25 Active simvastatin (Zocor) 20 MG tablet TAKE 1 TABLET BY MOUTH EVERY DAY IN THE EVENING 90 tablet 12/14/19 25 Active oxyCODONE (Roxicodone) 10 MG immediate release tabletIndicatio ns:ok to fill early per pcp Dr Fraga, please fill 10/21/22 Take 2 tablets (20 mg) by mouth every 8 (eight) hours if needed for severe pain for up to 28 days. 168 tablet 12/29/19 25 025 Active morphine CR (MS Contin) 30 MG 12 hr tabletIndicatio ns:ok to fill early per pcp Dr Fraga, please fill 10/21/22. Take 1 tablet (30 mg) by mouth every 12 (twelve) hours for 28 days. 56 tablet 12/29/19 25 025 Active citalopram (CeleXA) 20 MG tabletIndicatio ns:Chronic recurrent major depressive disorder (CMS/HCC) TAKE 1 TABLET BY MOUTH EVERY DAY IN THE MORNING 90 tablet 07/17/20 24 025 Discontinued simvastatin (Zocor) 20 MG tablet TAKE 1 TABLET BY MOUTH EVERY EVENING 90 tablet 09/12/20 24 025 Discontinued oxyCODONE (Roxicodone) 10 MG immediate release tabletIndicatio ns:ok to fill early per pcp Dr Fraga, please fill 10/21/22 Take 2 tablets (20 mg) by mouth every 8 (eight) hours if needed for severe pain for up to 28 days. Do not start before November 06, 2024. 168 tablet 11/06/19 25 025 Discontinued(Re order (will not trigger notification to Pharmacy)) morphine CR (MS Contin) 30 MG 12 hr tabletIndicatio ns:ok to fill early per pcp Dr Fraga, please fill 10/21/22. Take 1 tablet (30 mg) by mouth every 12 (twelve) hours for 28 days. Do not start before November 06, 2024. 56 tablet 11/06/19 25 025 Discontinued(Re order (will not trigger notification to Pharmacy)) oxyCODONE (Roxicodone) 10 MG immediate release tabletIndicatio ns:ok to fill early per pcp Dr Fraga, please fill 10/21/22 Take 2 tablets (20 mg) by mouth every 8 (eight) hours if needed for severe pain for up to 28 days. 168 tablet 11/30/19 25 025 Discontinued(Re order (will not trigger notification to Pharmacy)) morphine CR (MS Contin) 30 MG 12 hr tabletIndicatio ns:ok to fill early per pcp Dr Fraga, please fill 10/21/22. Take 1 tablet (30 mg) by mouth every 12 (twelve) hours for 28 days. 56 tablet 11/30/19 25 025 Discontinued(Re order (will not trigger notification to Pharmacy)) Active Problems Problem Noted Date Diagnosed Date terminologist (current) use of opiate analgesic 11/24 Edema 09/14/2024 Assessment & Plan (09/15/2024 12:20 PM EST): Bilateral edema, worse at end of day, due to associated dyspnea will order chest x-ray Possible s/e of amlodipine, Continue with compression stockings Pending labs and imaging consider echo Dyspnea 09/14/2024 Asymptomatic menopausal state 06/22/2024 Acute left ankle pain 06/22/2024 Assessment & Plan (06/22/2024 3:09 PM EDT): Patient will be contacted with results Neck pain 06/22/2024 Chronic bilateral low back pain with bilateral s ciatica 06/22/2024 History of abdominal hysterectomy 03/05/2024 Calculus of gallbladder and bile duct with acute cholecystitis, with obstruction 01/12/2024 Assessment & Plan (01/12/2024 1:48 PM EDT): S/p CCY 2 wks ago History of laparoscopic cholecystectomy 01/12/20 Assessment & Plan (01/12/2024 1:49 PM EDT): 2 wks ago, MONIQUE drain is out. R/o other obstructive syndormes Acute bilateral upper abdominal pain 01/12/2024 Assessment & Plan (01/12/2024 1:58 PM EDT): R/o choledocholithiasis Order labs and urgent abd US I gave information about liquid diet and advanced to soft diet as tolerated Prescription for zofran AC meals, if Sx do not improve she should go to ED Depression with anxiety 11/25/2023 Assessment & Plan (03/06/2024 1:34 PM EDT): Stable, c/w citalopram 20mg daily Assessment & Plan (11/25/2023 12:10 PM EST): Controlled c/w current interventions Encounter for preventive care 06/21/2023 Assessment & Plan (06/24/2023 3:18 PM EDT): See HPI Colon cancer screening 06/21/2023 Encounter for screening mamm ogram for malignant neoplasm of breast 06/21/2023 Primary hypertension 06/21/2023 Assessment & Plan (09/15/2024 12:21 PM EST): Above goal, pt will continue to monitor at home. May take 10 mg of amlodipine for bps >160/>100. Labs as ordered below, EKG wnl Pt has scheduled follow up with pcp Assessment & Plan (06/22/2024 3:08 PM EDT): Slightly elevated today I advise low Na diet, take medications as prescribed and monitor BP at home Assessment & Plan (03/06/2024 1:33 PM EDT): Controlled c/w same medication and low Na diet Assessment & Plan (11/25/2023 12:10 PM EST): Maintenance: BMP: up to date Lipid Panel: up to date - Aerobic exercise to reduce BP. Initial goal of 30 min walk 3-5x/week. Increase as tolerated. - low-sodium diet (goal: <2g/day) and heart healthy diet such as DASH to reduce BP and prevent ASCVD. - Home BP monitoring 1-2 x day with goal of <140/90. - Seek immediate medical attention for chest pain, palpitations, SOB, syncope, or sudden changes in mental status. - Do not change or discontinue current prescriptions without first consulting health care provider Assessment & Plan (09/16/2023 4:23 PM EST): - Aerobic exercise to reduce BP. Initial goal of 30 min walk 3-5x/week. Increase as tolerated. - low-sodium diet (goal: <2g/day) and heart healthy diet such as DASH to reduce BP and prevent ASCVD. - Home BP monitoring 1-2 x day with goal of <140/90. - Seek immediate medical attention for chest pain, palpitations, SOB, syncope, or sudden changes in mental status. - Do not change or discontinue current prescriptions without first consulting health care provider Assessment & Plan (06/24/2023 3:16 PM EDT): It has being notice her blood pressure persistently elevated I will start her on amlodipine 5mg daily - Aerobic exercise to reduce BP. Initial goal of 30 min walk 3-5x/week. Increase as tolerated. - low-sodium diet (goal: <2g/day) and heart healthy diet such as DASH to reduce BP and prevent ASCVD. - Home BP monitoring 1-2 x day with goal of <140/90. - Seek immediate medical attention for chest pain, palpitations, SOB, syncope, or sudden changes in mental status. - Do not change or discontinue current prescriptions without first consulting health care provider Left hip pain 05/12/2023 Assessment & Plan (05/12/2023 1:50 PM EDT): After XRAY results possible referral to orthopedics Chronic pain of both knees 05/12/2023 Great toe pain, right 05/12/2023 Other osteoporosis without current pathological fracture 05/12/2023 Elevated blood pressure reading 05/12/2023 Assessment & Plan (05/12/2023 1:52 PM EDT): She brought BP log which where normal today elevated, continue to monitor until next appointment Osteoporosis 05/12/2023 Greater trochanteric bursitis of left hip 2022 Assessment & Plan (12/09/2022 10:38 AM EDT): Discussed with pt about stretching exercises, recommedned walk in acupuncture clinic and heat to affected area. Use ibuprofen 400-800mg BID x7-10 days then PRN, cautioned to take with meals Refer to PT. FU in 8 weeks. Dermatitis 12/09/2022 Assessment & Plan (06/24/2023 3:17 PM EDT): Patient has being having dry skin patches [place] of triamcinolone will be prescribe today Assessment & Plan (12/09/2022 10:39 AM EDT): No signs of infection Use OTC hydrocortisone cream + regular moisturizer and reconsult PRN H/O vaginal hysterectomy 12/07/2022 Weight loss 09/21/2022 Headache disorder 09/21/2022 Early satiety 09/21/2022 Anxiety 09/21/2022 Cigarette smoker 09/21/2022 Assessment & Plan (09/21/2022 1:33 PM EST): Counseled to quit smoking High risk of osteoporosis, Order BD Cocaine dependence in remission 09/21/2022 COPD type A 09/21/2022 Assessment & Plan (09/21/2022 1:33 PM EST): Sxs are improving Continue Trelegy and Proair prn only. FU with pulmonology Counseled to quit smoking Cervical post-laminectomy syndrome 09/21/2022 Cervical radiculitis 09/21/2022 Overview (09/21/2022): s/p cervical disc surgery 12/09/08 using anterior approach, C4-C5 including bony fusion and hardware/ neck pain improved, resolution of right shoulder and arm painherniation at C4-5, with nerve root impingement at C5 demonstrated on MRI 10/30/08. Pain along the medial scapular border on the right c/w C5 on exam 10/2008 Should continue MS contin + Oxycodone prn. MassPAT reviewed, she's due for meds on 09/24/22. I spoke with [employer] COMPANY MANAGER nurse in charge Giana and she will fu with patient Re early refill. FU w PCP Assessment & Plan (09/21/2022 1:37 PM EST): s/p cervical disc surgery 12/09/08 using anterior approach, C4-C5 including bony fusion and hardware/ neck pain improved, resolution of right shoulder and arm painherniation at C4-5, with nerve root impingement at C5 demonstrated on MRI 10/30/08. Pain along the medial scapular border on the right c/w C5 on exam 10/2008 Should continue MS contin + Oxycodone prn. MassPAT reviewed, she's due for meds on 09/24/22. I spoke with BUS COMPANY MANAGER nurse in charge Giana and she will fu with patient Re early refill. FU w PCP Chest pain 09/21/2022 Hip pain 09/21/2022 Neuropathic pain 09/21/2022 Overview (09/21/2022): lower extremity Onychomycosis 09/21/2022 Myofascial pain 09/21/2022 Psychogenic pain 09/21/2022 Radiculopathy with lower extremity symptoms 08/27 Overview (09/21/2022): See Above for POC w Opiates. FU by [employer] COMPANY MANAGER nurse. Assessment & Plan (03/28/2024 4:37 PM EDT): I will prescribe today lidocaine patches 5% use one daily to help with her pain and avoid increase of narcotic use C/w current pain medication regimen which is oxycodone 10mg (2 tablets) immediate release every 8hrs and morphine 30mg one tablet every 12hrs, patient has being on this regimen for years attempts to cut down on medication has being done without success Assessment & Plan (09/21/2022 1:38 PM EST): See Above for POC w Opiates. FU by [employer] MANAGER nurse. Fibromyalgia 01/02/2018 Hyperlipidemia 11/02/2017 Status post abdominal hysterectomy 08/31/2017 Hyposomnia 08/31/2017 Drug-induced constipation 08/31/2017 Chronic recurrent major depressive disorder 02/2017 Assessment & Plan (09/16/2023 4:24 PM EST): Controlled with citalopram Patient declines therapist for now Posttraumatic stress disorder 09/22/2011 History of lumbar laminectomy for spinal cord de compression 08/18/2009 Overview (09/21/2022): L4-5, L3-4 with disc excision L4-5 and exporation L4-5 fusion , Dr. Vick Mason (for new right over left leg pain following 06/15/09 L4-5 ant/post fusion) Resolved Problems Problem Noted Date Diagnosed Date Resolved Date Tired 09/21/2022 10/31/2022 Depression 09/21/2022 10/31/2022 Complication of surgical procedure 09/21/2022 10/31/2022 Pure hypercholesterolemia 09/22/2011 Encounters Date Type Department Care Team Description 12/28/2024 12:00 PM EDT Office Visit [facility] [address] [place] [address] Sandra Zhao MD RUQ pain (Primary Dx); Seborrheic keratoses; Generalized abdominal pain; Fatty (change of) liver, not elsewhere classified; Encounter for screening for other viral diseases 12/28/2024 Travel 12/28/2024 Refill [facility] [address] [place] [address] Rosemarie Murillo MD Cervical radiculitis 12/26/2024 Refill [facility] [address] [place] [address] Rosemarie Murillo MD Cervical radiculitis 12/25/2024 Travel 12/24/2024 Telephone [facility] [address] [place] [address] Verna Goodman, RN 12/20/2024 Travel 12/19/2024 Telephone [facility] [address] [place] [address] Rosemarie Murillo MD Nurse Triage 12/13/2024 Refill [facility] [address] [place] [address] Rosemarie Murillo MD Chronic recurrent major depressive disorder (CMS/HCC) 12/06/2024 Telephone [facility] [address] [place] [address] Anjana Gramajo, RN telephone call 11/29/2024 Refill [facility] [address] [place] [address] Rosemarie Murillo MD Cervical radiculitis 11/29/2024 Travel 11/13/2024 Refill [facility] [address] [place] [address] Rosemarie Murillo MD Chronic midline thoracic back pain 10/31/2024 Refill [facility] [address] [place] [address] Rosemarie Murillo MD Cervical radiculitis 10/30/2024 Refill [facility] [address] [place] [address] Rosemarie Murillo MD Primary hypertension 10/30/2024 Refill [facility] [address] [place] [address] Rosemarie Murillo MD Primary hypertension 10/03/2024 Refill [facility] [address] [place] [address] Sandra Zhao MD Cervical radiculitis 10/03/2024 Refill [facility] [address] [place] [address] Sandra Le MD Cervical radiculitis 10/03/2024 Travel from Last 3 Months Immunizations Name Administration Dates Next Due Influenza Injectable Quadriv alant Preservative Free IIV4 MDCK 07/22/2022 Influenza injectable quadriv alent preservative free 06/06/2023,06/22/2021,06/28/2019,07/12,06/11/2017,06/21/2016 Influenza, High Dose Seasona l, Preservative Free 06/22/2024,06/07/2017 Influenza, IIV3, injectable 06/04/2014,1 ,07/27/2010,06/07,06/26/2008 Influenza, Split (incl. joby fied surface antigen) 05/31/2012 Influenza, seasonal, injecta ble, preservative free 07/20/2015 Pfizer Covid-19 Vaccine 12+ 06/22/2024 Pfizer Covid-19 Vaccine 12+ piper-sucrose (Rhodes Cap) 04/09/2022 Pneumococcal Conjugate PCV 20 07/22/2022 Pneumococcal Polysaccharide PPSV23 07/12/2018,,03/17/2012 RSV Bivalent 06/06/2023 TD (adult), 2 Lf tetanus tox oid, preservative free, adsorbed 05/12/2007 Zoster, Recombinant 11/08/2022,06/08/2022 Zoster, live 03/05/2015 Social History Tobacco Use Types Packs/Day Years [...] Orientation Straight 07/26/2022 10 :19 AM EDT Last Filed Vital Signs Vital Sign Reading [...] Mass Index 22.87 12/28/2024 12:09 PM EDT Plan of Treatment Health Maintenance Due Date Last Done Comments CT Colonography 1959 Colonoscopy 1959 Colorectal Cancer Screening 1959 FIT DNA/Cologuard 1959 FIT 1959 FOBT 1959 Sigmoidoscopy 1959 Hepatitis C Screening 1977 Hepatitis A Vaccines (1 of 2 - Risk 2-dose series) 1978 Pap Smear 1980 HPV/Cotest 1989 Mammogram 1999 DTaP/Tdap/Td Vaccines (1 - Tdap) 05/13/2007 05/12/2007 Hepatitis B Vaccines (1 of 3 - Risk 3-dose series) 2019 SDOH Screening 01/01/2025 01/02/2024 Depression Screening 01/11/2025 01/12/2024, 01/12/20 Alcohol/Substance Use Screening 06/22/2025 06/22/2024 Diabetes: Hemoglobin A1C 09/14/2025 09/14/2024 Tobacco Screening 12/28/2025 12/28/2024 Lipid Panel 09/14/2029 09/14/2024, 09/14/2024 Pneumococcal Vaccine: 50+ Years Completed 07/22/2022, 07/12/2018, 06/04/2014, Additional history exists Zoster Vaccines Completed 11/08/2022, 05/27, 03/05/2015 RSV Patients and Patients Aged 60 years or older Completed 06/06/2023 COVID-19 Vaccine Completed 06/22/2024, 07/2023, 09/07/2022, Additional history exists Influenza Vaccine Completed 06/22/2024, , 07/22/2022, Additional history exists Cervical Cancer Screening Discontinued HIB Vaccines Aged Out No longer eligi ble based on patient's age to complete this topic HPV Vaccines Aged Out No longer eligi ble based on patient's age to complete this topic IPV Vaccines Aged Out No longer eligi ble based on patient's age to complete this topic Meningococcal Vaccine Aged Out No kael anila eligible based on patient's age to complete this topic RSV under 20 months Aged Out No longe r eligible based on patient's age to complete this topic Rotavirus Vaccines Aged Out No longer eligible based on patient's age to complete this topic Procedures Procedure Name Priority Date/Time Associated Diagnosis Comments HEMOGLOBIN A1C Routine 09/14/2024 2:03 PM EST Primary hypertension Encounter for screening for diabetes mellitus LIPID PANEL, STANDARD Routine 09/14/2024 2:03 PM EST Primary hypertension from Last 3 Months or Most Recently Relevant to Health Maintenance Results * Hemoglobin A1c (09/14/2024 2:03 PM EST) Hemoglobin A1c 5.7 <6.0 % [facility] Comment:Hemoglobin A1C Refer ence Range Adults: 4.8 - 6.0 % Non diabetic: < 6.0 % Goal: < 7.0 %Additional Action Suggested: > 8.0 %Note: Hemoglobin A1c results are invalid for patients with abnormal amounts of HbF. Blood transfusions may impact the HbA1c concentration in the patient sample. Estimated Average Glucose 117 mg/dL [facility] Comment:eAG = Estimated ave rage glucose which is %A1C expressed asaverage glucose, using the formula of the [id number] Glucose study (ADAG), Diabetes Care, Vol.31,#8,Apr. 2007 Blood Venous blood specimen / Unknown 09/14/2024 2:03 PM EST 09/14/2024 4:07 PM EST Rosemarie Durham MD LAB BLOOD ORDERABLES Final Result [facility] [address] [place] [phone] * Lipid Panel, Standard (09/14/2024 2:03 PM EST) Triglycerides 86 <150 mg/dL [facility] Comment:Desirable Triglyceri de: less than 150 mg/dLBorderline High Triglyceride 150-199 mg/dLHigh Triglyceride: 200-499 mg/dLVery High Triglyceride: greater than or equal to 5OO mg/dL Cholesterol 162 <200 mg/dL [facility] Comment:Desirable Cholestero l: less than 200 mg/dLBorderline High Cholesterol: 200-239 mg/dLHigh Cholesterol: greater than 239 mg/dL LDL Cholesterol Calculated 88 <100 mg/dL [facility] Comment:Desirable LDL: less than 100 mg/dLNear Optimal/Above Optimal LDL: 110- 129 mg/dLBorderline High LDL: 130-159 mg/dLHigh LDL: 160-189 mg/dLVery High LDL: greater than or equal to 190 mg/dL HDL Cholesterol 57 >40 mg/dL [facility] Comment:Desirable HDL: great er than 40 mg/dL Note: This HDL assay may give artificially low results in patients with liver disease. Blood Venous blood specimen / Unknown 09/14/2024 2:03 PM EST 09/14/2024 4:07 PM EST Rosemarie Durham MD LAB BLOOD ORDERABLES Final Result [facility] [address] [place] [address] [phone] from Last 3 Months or Most Recently Relevant to Health Maintenance Insurance MEDICARE [facility] Care Teams Quick Sketch Artist Relationship Specialty Start Date End Date Rosemarie Murillo MD [address] [place] [address] PCP - General Family Medicine 04/26/19
--- OUTSIDE RECORDS SUMMARY | 2024-12-28 14:33 | XMS_ITS | Encounter Summary ---
Author Organization [employer] Address [address] [place] [address] [address] [place] [address] Care Team Providers Care Consulting Solution Director Name Role Phone Rosemarie Murillo MD Primary Care Provide r Reason for Visit * Reason Onset Date Comments returning call 09/21/2022 Encounter Details Date Type Department Care Team ([facility] st Contact Info) Description 09/21/2022 Telephone [facility] [address] [place], [place] [phone] Rosemarie Murillo MD [address] [place] [address] returning call Social History Tobacco Use Types Packs/Day Years Used Date Smoking Tobacco: Never Assessed Comments Unknown Sex and Gender Information Value Date Recorded Sex Assigned at Female 07/26/2022 10:19 AM EDT Legal Sex Female 10:19 AM EDT Gender Identity Female 07/26/2022 10:19 AM EDT Sexual Orientation Straight 07/26/2022 10 :19 AM EDT documented as of this encounter Miscellaneous Notes * Telephone Encounter - Alexandra Blum - 09/21/2022 3:42 PM EST Tc from pt returning call . documented in this encounter Plan of Treatment Not on file documented as of this encounter Visit Diagnoses Not on filedocumented in this encounter Care Teams Consulting Solution Director Relationship Specialty Start Date End Date Rosemarie Murillo MD [address] [place], [place] [phone] PCP - General Family Medicine 04/26/19 documented as of this encounter
--- OUTSIDE RECORDS SUMMARY | 2024-12-28 14:33 | XMS_ITS | Encounter Summary ---
Author Organization [employer] Address [address] [place] [address] [address] [place] [address] Care Team Providers Care Clinic Coordinator Name Role Phone Rosemarie Murillo MD Primary Care Provide r Reason for Visit * Reason Onset Date Comments Med Refill 10/03/2024 Encounter Details Date Type Department Care Team (Late st Contact Info) Description 10/03/2024 Refill [facility] [address] [place], [place] [phone] Sandra Zhao MD [address] [place] [address] Cervical radiculitis Social History Tobacco Use Types [...] is your housing situation today? I have jevoneliazar jones 01/02/[address] you [...] nos documented in this encounter Care Teams Clinic Coordinator Relationship Specialty Start Date End Date Rosemarie Murillo MD [address] [place] [address] PCP - General Family Medicine 04/26/19 documented as of this encounter
--- OUTSIDE RECORDS SUMMARY | 2024-12-28 14:33 | XMS_ITS | Encounter Summary ---
Author Organization [employer] Address [address] [place] [address] [address] [place] [address] Care Team Providers Care Asp Net C Developer Name Role Phone Rosemarie Murillo MD Primary Care Provide r Reason for Visit * Reason Onset Date Comments Med Refill 03/26/2024 Encounter Details Date Type Department Care Team (Late st Contact Info) Description 03/26/2024 Refill [facility] [address] [place], [place] [phone] Rosemarie Murillo MD [address] [place] [address] Cervical radiculitis Social History Tobacco Use Types [...] nos documented in this encounter Care Teams Asp Net C Developer Relationship Specialty Start Date End Date Rosemarie Murillo MD [address] [place] [address] PCP - General Family Medicine 04/26/19 documented as of this encounter
--- OUTSIDE RECORDS SUMMARY | 2024-12-28 14:33 | XMS_ITS | Encounter Summary ---
Author Organization [employer] Address [address] [place] [address] 7t [place] [address] Care Team Providers Care Electromechanical Inspector Name Role Phone Rosemarie Murillo MD Primary Care Provide r Reason for Visit * Reason Onset Date Comments Referral 01/13/2024 Encounter Details Date Type Department Care Team ([facility] st Contact Info) Description 01/13/2024 Telephone [facility] MED[facility]INE [address] [place], [place] [phone] Rosemarie Murillo MD 230 [place] [address] Referral Social History Tobacco Use Types Packs/Day Years [...] encounter Miscellaneous Notes * Telephone Encounter - Dolores Ruelas RN - 01/13/2024 10:56 AM EDT Please send US order from yesterday to [facility] if possible, thank you! * Telephone Encounter - Alexandra Blum - 01/13/2024 10:53 AM EDT Tc from pt calling in to check on referral for radiology . Pt was referral to [facility] but pt informs was supposed to be sent to [facility]. Pt would like a call back . documented in this encounter Plan of Treatment Not on file documented as of this encounter Visit Diagnoses Not on filedocumented in this encounter Care Teams Electromechanical Inspector Relationship Specialty Start Date End Date Rosemarie Murillo MD [address] [place] [phone] PCP - General Family Medicine 04/26/19 documented as of this encounter
--- OUTSIDE RECORDS SUMMARY | 2024-12-28 14:33 | XMS_ITS | Encounter Summary ---
Author Organization [employer] Address [address] [place] [address] 7 [place] [address] Care Team Providers Care Manager Poker Name Role Phone Rosemarie Murillo MD Primary Care Provide r Reason for Referral * Consultation (Routine) - Canceled Specialty Diagnoses / Procedures Referred By Contorlando t Referred To Contact Pharmacy Diagnoses Abdominal pain, unspecified abdominal location Nafisa Vogt PharmD [address] [place] [address] Phone: tel: fax: Referral ID Status Reason Start Date Expiration Date V isits Requested Visits Authorized [id number] Canceled Continuity of Care 01/06/2024 01/05/2025 1 1 Encounter Details Date Type Department Care Team (Late st Contact Info) Description 01/06/2024 Orders Only [facility] MED[facility]INE 230 [place], [place] [phone] Nafisa Vogt, PharmD [address] [place], [place] [phone] Abdominal pain, unspecified abdominal location (Primary Dx) Social History Tobacco Use Types [...] Recorded Patient Health Questionnaire-2 Score 0 12/09/2022 Comments Unknown Sex and Gender Information Value Date Recorded Sex Assigned at Female 07/26/2022 10:19 AM EDT Legal Sex Female 10:19 AM EDT Gender Identity Female 07/26/2022 10:19 AM EDT Sexual Orientation Straight 07/26/2022 10 :19 AM EDT documented as of this encounter Plan of Treatment Scheduled Referrals Name Type Priority Associated Diagnoses Orde r Schedule Referral to Pharmacy MTM Outpatient Referral Routine Abdominal pain, unspecified abdominal location Ordered: 01/06/2024 documented as of this encounter Visit Diagnoses Diagnosis Abdominal pain, unspecified abdominal location- Primary documented in this encounter Care Teams Manager Poker Relationship Specialty Start Date End Date Rosemarie Murillo MD [address] [place] [phone] PCP - General Family Medicine 04/26/19 documented as of this encounter
--- OUTSIDE RECORDS SUMMARY | 2024-12-28 14:33 | XMS_ITS | Encounter Summary ---
Author Organization [employer] Address [address] [place] [address] 7t [place] [address] Care Team Providers Care Sleep Manager Name Role Phone Rosemarie Murillo MD Primary Care Provide r Reason for Visit * Reason Onset Date Comments Med Refill 12/26/2024 Encounter Details Date Type Department Care Team (Late st Contact Info) Description 12/26/2024 Refill [facility] MEDICINE 230 [place], [place] [phone] Rosemarie Murillo MD [address] [place] [address] Cervical radiculitis Social History Tobacco Use Types [...] encounter Miscellaneous Notes * Telephone Encounter - Dolorse Ruelas RN - 12/28/2024 9:11 AM EDT [facility] reviewed again today, rxs pended * Telephone Encounter - Dolores Ruelas RN - 12/26/2024 10:50 AM EDT [facility] reviewed, 28 day supplies last picked up 12/01/24, due 12/29/24. Will pend to PCP 12/28/24 documented in this encounter Plan of Treatment Not on file documented as of this encounter Visit Diagnoses Diagnosis Cervical radiculitis Brachial neuritis or radiculitis nos documented in this encounter Care Teams Sleep Manager Relationship Specialty Start Date End Date Rosemarie Murillo MD [address] [place] [phone] PCP - General Family Medicine 04/26/19 documented as of this encounter
--- OUTSIDE RECORDS SUMMARY | 2024-12-28 14:33 | XMS_ITS | Encounter Summary ---
Author Organization [employer] Address [address] [place] [address] 7t [place] [address] Care Team Providers Care Mine Engineering Supervisor Name Role Phone Rosemarie Murillo MD Primary Care Provide r Encounter Details Date Type Department Care Team (Late st Contact Info) Description 09/14/2022 Orders Only [facility] 230 [place], [place] [phone] Sandra Zhao MD 230 [place] [address] Social History Tobacco Use Types Packs/Day Years [...] on filedocumented in this encounter Care Teams Mine Engineering Supervisor Relationship Specialty Start Date End Date Rosemarie Murillo MD 230 [place], [place] [phone] PCP - General Family Medicine 04/26/19 documented as of this encounter
--- OUTSIDE RECORDS SUMMARY | 2024-12-28 14:33 | XMS_ITS | Encounter Summary ---
Author Organization [employer] Address [address] [facility] 7t [place] [address] Care Team Providers Care Agricultural Engineering Technicians Name Role Phone Rosemarie Murillo MD Primary Care Provide r Encounter Details Date Type Department Care Team ([facility] st Contact Info) Description 12/24/2024 Telephone [facility] MEDICINE 230 [place], [place] [phone] Verna Goodman RN 230 [place], [place] [phone] Social History Tobacco Use Types Packs/Day Years [...] encounter Miscellaneous Notes * Telephone Encounter - Verna Goodman RN - 12/24/2024 11:01 AM EDT Images from the original note were not included. Triage call to Pt regarding Pt portal message below. Pt reports naranjo colored stool for last 2 weeks.Neg for diarrhea or constipation. Pt was triaged 12/19/24 please see note. Pt is requesting to have apt rescheduled. ASK apt with Dr. Zhao 12/28/24 @ 1200pm. Pt agrees with this plan. [facility] Clinical Support (supporting [facility])47 minutes ago(10:05 AM) RD Have to cancel my appointment my ride fell through have not found another ride have been trying to call but been on hold for 35 minutes will call to reschedule Thank you No questionnaires available. documented in this encounter Plan of Treatment Not on file documented as of this encounter Visit Diagnoses Not on filedocumented in this encounter Care Teams Agricultural Engineering Technicians Relationship Specialty Start Date End Date Rosemarie Murillo MD [address] [place] [address] PCP - General Family Medicine 04/26/19 documented as of this encounter
--- OUTSIDE RECORDS SUMMARY | 2024-12-28 14:33 | XMS_ITS | Encounter Summary ---
Author Organization [employer] Address [address] [place] [address] 7t [place] [address] Care Team Providers Care Shoulder Pad Molder Name Role Phone Rosemarie Murillo MD Primary Care Provide r Reason for Visit * Reason Onset Date Comments Hospital Follow-up 01/02/2024 Encounter Details Date Type Department Care Team ([facility] st Contact Info) Description 01/02/2024 Telephone [facility] MEDICINE 230 [place], [place] [phone] Rosemarie Murillo MD [address] [place] [address] Hospital Follow-up Social History Tobacco Use Types Packs/Day Years [...] encounter Miscellaneous Notes * Telephone Encounter - Adolfo Dale - 01/02/2024 9:12 AM EDT Tc from pt requesting a HDF appt. Hospital: [facility] Date of admission: 12/21 Discharge date: 12/29 Diagnosed: Multiple Conditions documented in this encounter Plan of Treatment Not on file documented as of this encounter Visit Diagnoses Not on filedocumented in this encounter Care Teams Shoulder Pad Molder Relationship Specialty Start Date End Date Rosemarie Murillo MD [address] [place] [phone] PCP - General Family Medicine 04/26/19 documented as of this encounter
--- OUTSIDE RECORDS SUMMARY | 2024-12-28 14:33 | XMS_ITS | Encounter Summary ---
Author Organization [employer] Address [address] [place] [address] 7t [place] [address] Care Team Providers Care Carpet Weaver Name Role Phone Rosemarie Murillo MD Primary Care Provide r Reason for Visit * Reason Onset Date Comments Med Refill 10/07/2023 Encounter Details Date Type Department Care Team ([facility] st Contact Info) Description 10/07/2023 Telephone [facility] MEDICINE 230 [place], [place] [phone] Rosemarie Murillo MD 230 [place] [address] Med Refill Social History Tobacco Use Types Packs/Day Years Used Date Smoking Tobacco: Former Cigarettes Smokeless Tobacco: Never Alcohol Use Standard Drinks/Week Comments Never 0 (1 standard drink = 0.6 oz pur e alcohol) PHQ-2 Answer Date Recorded Patient Health Questionnaire-2 Score 0 12/09/2022 Housing Stability Answer Date Recorded What is your housing situation today? I have jevon jones 07/14/[address] you li ve. Do you have problems with any of the following? None of the above 07/14/2023 Food Insecurity Answer Date Recorded Within the past 12 months, y ou worried that your food would run out before you got money to buy more: Never True 07/14/2023 Within the past 12 months,th e food you bought just didn't last and you didn't have enough money to get more: Never True Transportation Answer Date Recorded In the past 12 months, has l ack of transportation kept you from medical appts, meetings, work or from getting things needed for daily living? No 07/14/2023 Utilities Answer Date Recorded In the past 12 months, has t he electric, gas, oil or water company threatened to shut off services in your home? No 07/14/2023 Depression Answer Date Recorded Patient Health Questionnaire-2 Score 0 12/09/2022 Comments Unknown Sex and Gender Information Value Date Recorded Sex Assigned at Female 07/26/2022 10:19 AM EDT Legal Sex Female 10:19 AM EDT Gender Identity Female 07/26/2022 10:19 AM EDT Sexual Orientation Straight 07/26/2022 10 :19 AM EDT documented as of this encounter Miscellaneous Notes * Telephone Encounter - Jennifer Elliott LPN - 10/07/2023 1:08 PM EST Medication was sent to [id number] on 06/21/23 with 11 refills. * Telephone Encounter - Shila Santos - 10/07/2023 12:13 PM EST TC from pt requesting medication refill. Medications needing refill : amLODIPine (Norvasc) 5 MG tablet To be sent to: [id number] documented in this encounter Plan of Treatment Not on file documented as of this encounter Visit Diagnoses Not on filedocumented in this encounter Care Teams Carpet Weaver Relationship Specialty Start Date End Date Rosemarie Murillo MD [address] [place] [phone] PCP - General Family Medicine 04/26/19 documented as of this encounter
--- OUTSIDE RECORDS SUMMARY | 2024-12-28 14:33 | XMS_ITS | Encounter Summary ---
Author Organization [employer] Address [address] [place] [address] 7t [place] [address] Care Team Providers Care Health Insurance Specialist Name Role Phone Rosemarie Murillo MD Primary Care Provide r Reason for Visit * Reason Onset Date Comments Med Refill 10/30/2024 Encounter Details Date Type Department Care Team (Late st Contact Info) Description 10/30/2024 Refill [facility] MEDICINE 230 [place], [place] [phone] Rosemarie Murillo MD 230 [place] [address] Primary hypertension Social History Tobacco Use Types Packs/Day Years [...] as of this encounter Visit Diagnoses Diagnosis Primary hypertension Unspecified essential hypertension documented in this encounter Care Teams Health Insurance Specialist Relationship Specialty Start Date End Date Rosemarie Murillo MD [address] [place] [phone] PCP - General Family Medicine 04/26/19 documented as of this encounter
--- OUTSIDE RECORDS SUMMARY | 2024-12-28 14:33 | XMS_ITS | Encounter Summary ---
Author Organization [employer] Address [address] [facility] 7t [place] [address] Care Team Providers Care Surplus Property Disposal Agent Name Role Phone Rosemarie Murillo MD Primary Care Provide r Encounter Details Date Type Department Care Team ([facility] st Contact Info) Description 07/17/2024 Orders Only [facility] MEDICINE 230 [place], [place] [phone] Rosemarie Murillo MD 230 [place] [address] Social History Tobacco Use Types Packs/Day Years [...] on filedocumented in this encounter Care Teams Surplus Property Disposal Agent Relationship Specialty Start Date End Date Rosemarie Murillo MD [address] [place] [phone] PCP - General Family Medicine 04/26/19 documented as of this encounter
--- OUTSIDE RECORDS SUMMARY | 2024-12-28 14:33 | XMS_ITS | Encounter Summary ---
Author Organization [employer] Address [address] [facility] 7t [place] [address] Care Team Providers Care Master Fisher Name Role Phone Rosemarie Murillo MD Primary Care Provide r Encounter Details Date Type Department Care Team (Latest Contact Info) Description 12/28/2024 Travel Social History Tobacco Use Types Packs/Day [...] on filedocumented in this encounter Care Teams Master Fisher Relationship Specialty Start Date End Date Rosemarie Murillo MD 230 [place] [address] PCP - General Family Medicine 04/26/19 documented as of this encounter
--- OUTSIDE RECORDS SUMMARY | 2024-12-28 14:33 | XMS_ITS | Encounter Summary ---
Author Organization [employer] Address [address] [place] [address] 7t [place] [address] Care Team Providers Care Physical Therapy Aide Name Role Phone Rosemarie Murillo MD Primary Care Provide r Reason for Visit * Reason Onset Date Comments Med Refill 12/28/2024 Encounter Details Date Type Department Care Team (Late st Contact Info) Description 12/28/2024 Refill [facility] MED[facility]INE 230 [place], [place] [phone] Rosemarie Murillo MD 230 [place] [address] Cervical radiculitis Social History Tobacco Use Types [...] nos documented in this encounter Care Teams Physical Therapy Aide Relationship Specialty Start Date End Date Rosemarie Murillo MD [address] [place] [phone] PCP - General Family Medicine 04/26/19 documented as of this encounter
[2024-12-28 16:45] LABS: Alanine Aminotransferase 17 U/L (0-31); Albumin Level 4.2 g/dL (3.5-5.0); Alkaline Phosphatase 80 U/L (39-117); Aspartate Amino Transferase 23 U/L (5-31); Bilirubin Direct 0.2 mg/dL (0.0-0.5); Bilirubin Total 0.4 mg/dL (0.0-1.0); Lipase 13 U/L (8-78); Total Protein 7.3 g/dL (6.5-8.0)
[2024-12-28 16:53] LABS: Gamma Glutamyl Transpeptidase 15 U/L (7-33)
[2024-12-29 07:46] LABS: HBS Num1 4.66 mIU/mL (0-7.99); HBc Num1 0.09 S/CO (0.00-0.79); HBsAGNum1 0.27 S/CO (0.00-0.99); Hepatitis A Antibody IgM 0.16 Index (0-0.79); Hepatitis B Core Antibody Nonreactive (Nonreactive); Hepatitis B Surface Antigen Negative (Negative); ~HepC Num1 0.29 S/CO (0.00-0.79); ~Hepatitis A Antibody IgM Nonreactive (Nonreactive); ~Hepatitis B Surface Antibody NONREACTIVE (Nonreactive); ~Hepatitis C Antibody Nonreactive (Nonreactive)
== END 2024-12-28 12:41 | disposition home or self-care (01) ==
LOC: HO.HHCL 12:40
PROVIDERS: Visit Provider Internal Medicine
DX: R10.84 Generalized abdominal pain (principal); K76.0 Fatty (change of) liver, not elsewhere classified; R10.11 Right upper quadrant pain; Z11.59 Encounter for screening for other viral diseases; Z72.89 Other problems related to lifestyle
CPT/HCPCS: 36415; 80076; 82977; 83690; 86704; 86706; 86709; 86803; 87340

== ENCOUNTER 2025-03-05 10:10 | Outpatient (AMB) | payer MEDICARE, MEDICAID, SELFPAY ==
--- NOTE | 2025-03-05 10:12 | A.OFFVIS_ITS ---
Vital Signs 03/05/25 10:27 Height 5 ft 7 in Weight 148 lb BMI 23.2 BP 124/58 L Blood Pressure Location Rt brachial Position Sitting Pulse 85 Intake Visit Reasons: RUQ pain Intake Note: Patient referred by pcp Dr. Lawrence for pneumobilia. Reports complication with Gallbladder surgery in December 2023. Patient c/o: RUQ pain, nausea. Discomfort comes and goes. Vulcanizer Operator Required: No Accompanied by: Self / Same As Patient Allergies hydroxyzine [From Atarax] Allergy (Mild, Verified 03/05/25 10:20) tongue swelling lamotrigine [From Lamictal] Allergy (Mild, Verified 03/05/25 10:20) Headache topiramate [From Topamax] Allergy (Mild, Verified 03/05/25 10:20) Headache Medication List - Last Reconciled 03/05/25 by Dominik Tanner MD amlodipine 5 mg PO DAILY cholecalciferol (vitamin D3) 1,250 mcg PO QWEEK citalopram 20 mg PO DAILY zfnfkqldlpg-lhzrumidi-iknutlsd 100-62.5-25 mcg (Trelegy Ellipta) 1 inh inhalation DAILY inulin (Fiber Gummies) grams PO lidocaine 5% 1 patch topical DAILY morphine ER (MS Contin) 30 mg PO Q12H oxycodone 20 mg PO BID PRN simvastatin 20 mg PO BEDTIME HPI HPI RUQ pain: Details: 64-year-old female here for chronic right upper quadrant pain. She says she had acute cholecystitis last year and emergency laparoscopic cholecystectomy done in [facility] that time. However, she says she had ?complications? and had ERCPs done 3 times after that. She had a stent placed as well for what she describes as a bile leak Since then, she has had this chronic right upper quadrant pain periodically. She had an ultrasound done last month showing pneumobilia as well as a dilated common bile duct which are expected with her ideas cholecystectomy and ERCP She has good oral intake and does not seem to have any significant weight loss. She also describes having ?ricky colored stools?. 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 Dyspnea Edema Chronic bilateral low back pain with bilateral sciatica Neck pain Acute left ankle pain Asymptomatic menopausal state Osteoporosis Acute bilateral upper abdominal pain Calculus of gallbladder and bile duct with acute cholecystitis with obstruction Encounter for screening for malignant neoplasm of breast Colon cancer screening Primary hypertension Elevated blood pressure reading Other osteoporosis without current pathological fracture Pain of right great toe Chronic pain of both knees Left hip pain Dermatitis Greater trochanteric bursitis of left hip Radiculopathy with lower extremity symptoms Psychogenic pain Myofascial pain Onychomycosis Neuropathic pain Hip pain Chest pain Fibromyalgia Cervical radiculitis Cervical post-laminectomy syndrome COPD type A Cocaine dependence in remission Cigarette smoker Chronic recurrent major depressive disorder Anxiety Drug induced constipation Early satiety Headache disorder Hyperlipidemia Hyposomnia Posttraumatic stress disorder Weight loss Surgical History Hx laparoscopic cholecystectomy Previous back surgery H/O neck surgery H/O vaginal hysterectomy History of lumbar laminectomy for spinal cord decompression Status post abdominal hysterectomy Social History Patient Tobacco Use Status: Former Tobacco user Tobacco use type: Smokeless Tobacco Review of Systems Const Denies chills and Denies fever(s) Card Denies chest pain, Denies dyspnea and Denies dyspnea on exertion Resp Denies cough, Denies dyspnea and Denies dyspnea on exertion GI Denies hematochezia and Denies change in bowel habits Denies hematuria Musc Denies back pain and Denies limited range of motion Neuro Denies focal weakness and Denies convulsions Psych Denies depression and Denies mood swings Physical Exam Vital Signs: Last Vital Signs Pulse 85 03/05/25 10:27 BP 124/58 L 03/05/25 10:27 BMI result Body Mass Index 23.2 Const General: comfortable and no acute distress Orientation/consciousness: patient oriented x3 Neck Neck: Yes no lymphadenopathy Resp Auscultation: clear to auscultation bilaterally Cardio Rhythm: regular rhythm GI Palpation (GI): Soft to palpation, nontender and no guarding Neuro General: patient oriented x3 Assessment & Plan Assessment & Plan (1) RUQ pain: Code(s): R10.11 - Right upper quadrant pain Category: Medical Plan: She has had chronic right upper quadrant pain after laparoscopic cholecystectomy which apparently was complicated by a bile leak requiring multiple ERCPs last year Abdominal exam currently exam is unremarkable. I assured her that her ultrasound findings are protected after her procedures from last year I am going to order for a CAT scan of the abdomen and pelvis without any other pathology for now. Her exam is otherwise benign I will see her in the office after her CAT scan. Orders: Orders Blood Urea Nitrogen Today R10.11 - Right upper quadrant pain Creatinine Today R10.11 - Right upper quadrant pain CT abdomen pelvis w IV con Today R10.11 - Right upper quadrant pain Coding Level of Care Code New Pt Level 3 (39509) Diagnoses RUQ pain R10.11
[2025-03-05 10:27] VITALS: BP 124/58; PULSE 85; BMI 23.2
--- OUTSIDE RECORDS SUMMARY | 2025-03-05 11:44 | XMS_ITS | Encounter Summary ---
Author Organization [employer] Address [address] [facility] 7t [place] [address] Care Team Providers Care Erp Technical Lead Name Role Phone Rosemarie Murillo MD Primary Care Provide r Encounter Details Date Type Department Care Team (Late Contact Info) Description 11/11/2022 Orders Only [facility] [address] [place] [address] [phone] Sandra Zhao MD [address] [place] [address] [phone] Age related osteoporosis, unspecified pathological fracture presence [...] as of this encounter Plan of Treatment Upcoming Encounters Date Type Department Care Team (Late st Contact Info) Description 04/09/2025 11:30 AM EDT Clinical Support [facility] [address] [place] [phone] Anjana Gramajo RN Scheduled Orders Name Type Priority Associated Diagnoses Orde r Schedule Vitamin D, 25-Hydroxy, Total, Immunoassay Lab Routine Age related osteoporosis, unspecified pathological fracture presence Expected: 05/11/2023, Expires: 11/11/2023 documented as of this encounter Visit Diagnoses Diagnosis Age related osteoporosis, unspecified pathological fracture presence- Primary documented in this encounter Care Teams Erp Technical Lead Relationship Specialty Start Date End Date Rosemarie Murillo MD [address] [place] [address] PCP - General Family Medicine 04/26/19 documented as of this encounter
== END 2025-03-05 10:38 | disposition home or self-care (01) ==
LOC: HO.HGS 10:11
PROVIDERS: PCP Internal Medicine; Visit Provider Surgery
DX: R10.11 Right upper quadrant pain (principal)
CPT/HCPCS: 99203

== ENCOUNTER 2025-03-05 10:10 | Outpatient (REF) | payer MEDICARE, MEDICAID, SELFPAY ==
[2025-03-05 11:43] LABS: Alanine Aminotransferase 15 U/L (0-31); Albumin Level 4.4 g/dL (3.5-5.0); Alkaline Phosphatase 89 U/L (39-117); Aspartate Amino Transferase 23 U/L (5-31); Bilirubin Direct < 0.2 mg/dL (0.0-0.5); Bilirubin Total 0.2 mg/dL (0.0-1.0); Blood Urea Nitrogen 15 mg/dL (9-16); Estimated Glomerular Filt Rate > 60; Total Protein 7.5 g/dL (6.5-8.0)
== END 2025-03-05 10:11 | disposition home or self-care (01) ==
LOC: HO.LAB 10:10
PROVIDERS: PCP Internal Medicine; Visit Provider Surgery
DX: R10.11 Right upper quadrant pain (principal)
CPT/HCPCS: 36415; 80076; 82565; 84520; 99202

== ENCOUNTER 2025-06-07 11:51 | Outpatient (REF) | payer MEDICARE, MEDICAID, SELFPAY ==
--- NOTE | ~2025-06-07 | CT_ITS ---
CLINICAL HISTORY: R10.11 - Right upper quadrant pain --- Additional Notes or Special Instructions: Pt states she is allergic to ORAL contrast but can take the IV contrast CT abdomen and pelvis with contrast Comparison: None provided Findings: The lung bases are clear. Cholecystectomy clips. Pneumobilia. Solid organs are within normal limits. No bowel obstruction, pneumoperitoneum, or pneumatosis. Pelvic contents unremarkable. Appendix is not seen. The bones are intact. IMPRESSION: No acute findings. This document has been electronically signed by: Toshia Molina MD on 06/07/2025 19:24:11
[2025-06-07] MEDS: iohexoL 350 MG/ML 100 ML INFUS..BTL IV (12:57)
--- OUTSIDE RECORDS SUMMARY | 2025-06-07 14:18 | XMS_ITS | Clinical Summary ---
Author Organization [facility] [place] [facility] Address [facility] [place] [address] Care Team Providers Care Manager Bridge Name Role Phone Rosemarie uMrillo MD Primary Care Provider Allergies Active Allergy Reactions Criticality Noted Date Comments Hydroxyzine Hcl 03/15/2024 Levetiracetam 03/15/2024 Social History Tobacco Use Types Packs/Day Years Used Date Smoking Tobacco: Never Assessed Smokeless Tobacco: Current Tobacco Cessation:Ready to Q uit: Not Asked; Counseling Given: Not Answered [facility] Inpatient Questions Answer Date Recorded Does Anyone Try to Keep You From Having Contact with Others or Doing Things Outside Your Home? no 03/15/2024 Feels Threatened by Someone no 02/25 Feels Unsafe at Home or Work/School no 03/15/2024 Physical Signs of Abuse Present no 03/15/2024 Comments Unknown Sex and Gender Information Value Date Recorded Sex Assigned at Not on file Legal Sex Female 3:06 PM EDT Gender Identity Not on file Sexual Orientation Not on file Last Filed Vital Signs Vital Sign Reading Time Taken Comments Blood Pressure 122/69 03/15/2024 3:21 PM EDT Pulse 88 03/15/2024 3:21 PM EDT Temperature 36.4 C (97.5 F) 03/15/2024 3:21 PM EDT Respiratory Rate 18 03/15/2024 3:21 PM EDT Oxygen Saturation 97% 03/15/2024 3:21 PM EDT Inhaled Oxygen Concentration - - Weight 61.2 kg (135 lb) 03/15/2024 3:19 PM EDT Height 165.1 cm (5' 5 ) 03/15/2024 3:19 PM EDT Body Mass Index 22.47 03/15/2024 3:19 PM EDT Plan of Treatment Health Maintenance Due Date Last Done Comments CT Colonography 1959 Colonoscopy 1959 Colorectal Cancer Screening 1959 FIT DNA 1959 FIT 1959 Sigmoidoscopy (10 year) with FIT yearly 1959 Sigmoidoscopy 1959 Hepatitis C Screening 1977 Tetanus/Diphtheria/Pertussis Vaccines (1 - Tdap) 04/13 HPV test 1989 PAP Smear 1989 Breast Cancer Share Decision Needed 1999 Breast Cancer screening 1999 Pneumoccocal Vaccine: 50+ (1 of 1 - PCV) 2009 Zoster vaccine (1 of 2) 2009 Advance Directive 2014 Bone Density Scan 2024 Covid-19 Vaccine (2 - season) 2025 Influenza (Flu) vaccine (1 o f 1 - Influenza standard series) 05/27/2025 Insurance [place]ICARE [place]ICAID [place] Care Teams Manager Bridge Relationship Specialty Start Date End Date Rosemarie Murillo MD [address] [place] [address] PCP - General 03/15/24
[2025-06-11 16:37] LABS: Creatinine POC 0.6 mg/dL (0.5-1.4); GFR POC > 60
== END 2025-06-07 11:52 | disposition home or self-care (01) ==
LOC: HO.CT 11:51
PROVIDERS: PCP Internal Medicine; Visit Provider Surgery
DX: R10.11 Right upper quadrant pain (principal)
CPT/HCPCS: 74177; 82565; Q9967

== ENCOUNTER → 2025-06-07 11:56 | Outpatient (BNV) | payer MEDICARE, MEDICAID, SELFPAY | PROVIDERS: PCP Internal Medicine; Visit Provider Radiology Diagnostic Radiology | DX: R10.11 Right upper quadrant pain (principal) | CPT/HCPCS: 74177 ==

== ENCOUNTER → 2025-08-15 14:53 | Outpatient (REF) | payer MEDICARE, MEDICAID, SELFPAY ==
--- NOTE | 2025-08-15 14:56 | CA_ITS ---
Transthoracic Echocardiogram Patient (Last, First, Middle): Neelima Holloway M Gender: Female Date of : 1960 Age: 65 Procedure Date: 08/15/2025 Procedure Type: Transthoracic Echocardiogram Location: OP Height: 170.18 cm Weight: 67.13 kg BSA: 1.78 m2 Heart Rate: bpm BP: 124 / 58 mmHg Java Lead Engineer: LORI Referring MD: Coral KEVIN Symptoms: B/L EDEMA OF LOWER EXT. Study Quality: Adequate w contrast ECG Rhythm: Sinus Conclusions: - The left ventricular systolic function is hyperdynamic. The visually estimated ejection fraction is >70%. - No obvious valvular pathology seen on this study. Findings Procedure Information Contrast agent, definity, is being given per protocol without apparent complications. Left Ventricle Normal left ventricular cavity size. There is normal left ventricular wall thickness. The left ventricular systolic function is hyperdynamic. The visually estimated ejection fraction is >70%. There is no evidence of regional wall motion abnormalities. There is no dynamic left ventricular outflow tract obstruction. Diastolic function is normal for age. Right Ventricle Normal right ventricular cavity size and systolic function. Atria Both atria are normal in size. Aortic Valve There is a normal trileaflet aortic valve. There is no aortic valve stenosis. There is no aortic valve regurgitation. Mitral Valve The mitral valve appears normal. There is no mitral valve regurgitation. There is no mitral valve stenosis. Pulmonic Valve The pulmonic valve is likely normal. Tricuspid Valve Normal tricuspid valve structure. There is mild tricuspid valve regurgitation. There is no evidence of pulmonary hypertension. Great Vessels The asc aorta is normal in size. Venous The inferior vena cava is normal in size and collapses greater than 50% with inspiration. Pericardium/Pleural There is no evidence of pericardial effusion. Prior Study Comparison No prior study available for comparison. Recommendations, Care & Conclusions No obvious valvular pathology seen on this study. Measurements 2D Linear Measurements IVSd: 0.89 0.6-0.9/0.6-1.0 cm LVIDd: 4.26 3.9-5.3/4.2-5.9 cm LVIDd Index: 2.39 2.4-3.2/2.2-3.1 cm/m2 LVIDs: 2.65 2.0-3.6 cm LVPWd: 0.86 0.7-1.1 cm LA Diam: 2.40 2.7-3.8/3.0-4.0 cm LAIDs Index: 1.35 1.5-2.3 cm/m2 LV Mass: 145.36 67-162/88-224 g LV Mass Index: 81.67 43-95/49-115 g/m2 LVOT Diam: 2.20 3.0+(-)1.3 cm 2D Systolic Function EF 4C: 77.10 >55% EF 2C: 82.50 >55% EF BiP: 79.80 >55% Mitral Valve MV Pk E: 0.89 MV PK A: 0.66 MV Decel Time: 240.00 E/A: 1.30 E'Lateral: 7.07 E'Medial: 6.74 E/E' Med: 13.20 E/E' Lat: 12.60 PHT: 70.00 MVA PHT: 3.14 Decel [place]: 3.73 Aortic Valve AoV Pk [place]: 1.59 AoV Mn [place]: 1.10 AoV VTI: 0.35 AoV Pk Grad: 10.00 Aov Mn Grad: 5.00 BOYD Cont.VTI: 3.40 LVOT LVOT Pk [place]: 1.55 LVOT Mn [place]: 1.02 LVOT VTI: 0.31 LVOT Pk Grad: 10.00 LVOT Mn Grad: 5.00 LVOT Diam: 2.20 LVOT Area: 3.80 Diastolic Function MV Pk E: 0.89 MV Pk A: 0.66 E/A: 1.30 E'Medial: 6.74 E/E' Med: 13.20 E' Laterial: 7.07 E/E' Lat: 12.60 Right Ventricle TAPSE (mm): 24.90 TVS' [place]: 14.40 Tricuspid Valve TR Pk [place]: 2.35 TR Pk Grad: 22.00 RA Press: 3.00 RVSP: 25.00 Great Vessels Aorta Sinus of Valsalva: 3.03 2.0-3.[address] [place]: 2.29 1.7-3.4 cm Ao Asc: 2.90 2.1-3.4 cm Pulmonary Veins Pulm Vein S/D 1.30 Updated in Other Vendor System with Status of Final Ab Larkin MD electronically signed on 08/17/2025 10:40:48 AM with status of Final
--- OUTSIDE RECORDS SUMMARY | 2025-08-15 20:23 | XMS_ITS | Clinical Summary ---
Author Organization [employer] Address [address] [place] [address] 7[address] [place] [address] Care Team Providers Care Estate Conservator Name Role Phone Rosemarie Murillo MD Primary Care Provide r Allergies Active Allergy Reactions Criticality Noted Date Comments Hydroxyzine Swelling 11/20/2010 Other reaction(s): tongue swells Lamotrigine 09/21/2022 Other reaction(s): severe headaches Levetiracetam 09/21/2022 Other reaction(s): severe headaches Topiramate 09/21/2022 Other reaction(s): headaches Medications albuterol (2.5 MG/3ML) 0.083% nebulizer solution See Instructions, USE 1 VIAL IN NEBULIZER 4 TIMES DAILY, # 120 each, 11 Refills, Maintenance, 07/27/22 12:06:00 EDT, [facility], 169, cm, 07/12/22 10:26:00 EDT, Height, 56.5, kg, 04/30/22 20:06:00 EDT, Dry Weight 03/02/20 19 Active albuterol 108 (90 Base) MCG/ACT inhalerIndicati ons:Pulmonary emphysema, unspecified emphysema type INHALE 2 PUFFS BY MOUTH 4 TIMES A DAY NEEDED FOR WHEEZING/SHORT NESS OF BREATH 18 g 3 09/21/20 22 [...] SWELLING). 30 g 2 06/19/20 24 Active citalopram (CeleXA) 20 MG tabletIndicatio ns:Chronic recurrent major depressive disorder (CMS/HCC) TAKE 1 TABLET BY MOUTH EVERY DAY IN THE MORNING 90 tablet 06/18/20 25 Active simvastatin (Zocor) 20 MG tablet TAKE 1 TABLET BY MOUTH EVERY DAY IN THE EVENING 90 tablet 06/18/20 25 Active mirtazapine (Remeron) 7.5 MG tabletIndicatio ns:Primary insomnia Take 1 tablet (7.5 mg) by mouth at bedtime. 30 tablet 2 06/25/20 25 Active naloxone (Narcan) 4 mg/0.1 mL nasal sprayIndication s:shelter (current) use of opiate analgesic Administer 1 spray (4 mg) into affected nostril(s) if needed for opioid reversal. May repeat every 2-3 minutes if needed, alternating nostrils, until medical assistance becomes available. 2 each 3 07/02/20 25 2025 Active losartan (Cozaar) 25 MG tablet Take 1 tablet (25 mg) by mouth Once per day. 30 tablet 11 07/18/20 25 2025 Active lidocaine (Lidoderm) 5 % patchIndication s:Chronic midline thoracic back pain APPLY 1 PATCH IN THE MORNING REMOVE AND DISCARD PATCH WITHIN 12 HOURS OR DIRECTED 30 patch 1 07/19/20 25 Active oxyCODONE (Roxicodone) 10 MG immediate release tabletIndicatio ns:ok to fill early per pcp Dr Fraga, please fill 10/21/22 Take 2 tablets (20 mg) by mouth every 8 (eight) hours if needed for severe pain. Do not start before August 09, 2025. 168 tablet 08/09/20 25 2024 Active morphine CR (MS Contin) 30 MG 12 hr tabletIndicatio ns:ok to fill early per pcp Dr Fraga, please fill 10/21/22. Take 1 tablet (30 mg) by mouth every 12 (twelve) hours for 28 days. Do not start before August 09, 2025. 56 tablet 08/09/20 25 2024 Active amLODIPine (Norvasc) 5 MG tabletIndicatio ns:Primary hypertension TAKE 1 TABLET BY MOUTH EVERY DAY IN THE MORNING 90 tablet 1 04/22/20 25 2024 Discontinued(S kristy effects) lidocaine (Lidoderm) 5 % patchIndication s:Chronic midline thoracic back pain APPLY 1 PATCH IN THE MORNING REMOVE AND DISCARD PATCH WITHIN 12 HOURS OR DIRECTED 30 patch 1 05/24/20 25 2024 Discontinued oxyCODONE (Roxicodone) 10 MG immediate release tabletIndicatio ns:ok to fill early per pcp Dr Fraga, please fill 10/21/22 Take 2 tablets (20 mg) by mouth every 8 (eight) hours if needed for severe pain for up to 28 days. Do not start before July 12, 2025. 168 tablet 07/12/20 25 2024 Discontinued(R eorder (will not trigger notification to Pharmacy)) morphine CR (MS Contin) 30 MG 12 hr tabletIndicatio ns:ok to fill early per pcp Dr Fraga, please fill 10/21/22. Take 1 tablet (30 mg) by mouth every 12 (twelve) hours for 28 days. Do not start before July 12, 2025. 56 tablet 07/12/20 25 2024 Discontinued(R eorder (will not trigger notification to Pharmacy)) Active Problems Problem Noted Date Diagnosed Date Bilateral edema of lower extremity 07/19/2025 Primary insomnia 06/25/2025 Assessment & Plan (06/25/2025 3:54 PM EDT): I will start her on mirtazapine 7.5 mg at bedtime, side effects of this medication were discussed Right elbow pain 06/25/2025 Pneumobilia 01/16/2025 RUQ pain 12/31/2024 Assessment & Plan (12/31/2024 8:50 AM EDT): That is post CCY a year ago, she could have intrahepatic stone versus bile duct stones Order liver ultrasound Advised regarding increased p.o. hydration, avoid fatty and fried food Reconsult as needed fever, worsening abdominal pain or vomiting, icterus Follow-up with PCP Seborrheic keratoses 12/31/2024 Assessment & Plan (12/31/2024 8:43 AM EDT): On right arm. 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 Initial [...] consulting health care provider Assessment & Plan (09/15/2024 12:21 PM EST): [...] Patient has being having dry skin patches Momence of triamcinolone will be prescribe today Assessment & Plan (12/09/2022 10:39 AM EDT): No signs of infection Use OTC hydrocortisone cream + regular moisturizer and reconsult PRN H/O vaginal hysterectomy 12/07/2022 Weight loss 09/21/2022 Headache disorder 09/21/2022 Early satiety 09/21/2022 Anxiety 09/21/2022 Cigarette smoker 09/21/2022 Assessment & Plan (09/21/2022 1:33 PM EST): Counseled to quit smoking High risk of osteoporosis, Order BD COPD type A 09/21/2022 Assessment & Plan (06/25/2025 3:54 PM EDT): Stable continue with same interventions Assessment & Plan (09/21/2022 1:33 PM EST): [...] for meds on 09/24/22. I spoke with SENIOR SOFTWARE QA ENGINEER nurse in charge Giana and she will [...] for meds on 09/24/22. I spoke with SENIOR SOFTWARE QA ENGINEER nurse in charge Giana and she will fu with patient Re early refill. FU w PCP Chest pain 09/21/2022 Hip pain 09/21/2022 Neuropathic pain 09/21/2022 Overview (09/21/2022): lower extremity Onychomycosis 09/21/2022 Myofascial pain 09/21/2022 Psychogenic pain 09/21/2022 Radiculopathy with lower extremity symptoms 08/27 Overview (09/21/2022): See Above for POC w Opiates. FU by SENIOR SOFTWARE QA ENGINEER nurse. Assessment & Plan (06/25/2025 3:57 PM EDT): Continue with same medication regimen, I explained to patient she is already on high doses of narcotics and I have concerns about safety, which means I do not feel comfortable going up on the doses of her medications, patient understood Assessment & Plan (03/28/2024 4:37 PM EDT): [...] Above for POC w Opiates. FU by SENIOR SOFTWARE QA ENGINEER nurse. Fibromyalgia 01/02/2018 Hyperlipidemia 11/02/2017 Status post [...] Date Tired 09/21/2022 10/31/2022 Depression 09/21/2022 10/31/2022 Cocaine dependence in remission ([facility]) 09/21/2022 06/25/2025 Complication of surgical procedure 09/21/2022 10/31/2022 Pure hypercholesterolemia 09/22/2011 Encounters Date Type Department Care Team Description 08/06/2025 Refill [facility] [address] [place] [address] Rosemarie Murillo MD Cervical radiculitis 08/01/2025 Orders Only [facility] [address] [place] [address] Rosemarie Murillo MD Prediabetes (Primary Dx) 08/01/2025 Telephone [facility] [address] [place] [address] Rosemarie Murillo MD Results 07/19/2025 Refill [facility] [address] [place] [phone] Rosemarie Murillo MD Chronic midline thoracic back pain 07/18/2025 11:00 AM EDT Office Visit [address] [address] Coral Frances FNP Primary hypertension (Primary Dx); Bilateral edema of lower extremity 07/18/2025 Travel 07/16/2025 Travel 07/09/2025 Refill [facility] [address] [place] [address] Rosemarie Murillo MD Cervical radiculitis 07/02/2025 11:30 AM EDT Clinical Support [address] [address] Anjana Gramajo, SHERRI shelter (current) use of opiate analgesic (Primary Dx) 07/02/[address] [address] Anjana Gramajo RN shelter (current) use of opiate analgesic (Primary Dx) 07/02/2025 Travel 06/25/2025 2:45 PM EDT Office Visit [address] [address] Rosemarie Murillo MD Primary hypertension (Primary Dx); Pulmonary emphysema, unspecified emphysema type (CMS/HCC); Primary insomnia; Right elbow pain; Encounter for preventive care; Radiculopathy with lower extremity symptoms 06/25/2025 Travel 06/24/[address] [address] Rosemarie Murillo MD chart prep 06/18/2025 Travel 06/17/2025 Patient Outreach [address] [address] Rosemarie Murillo MD Pre-visit Planning ((Unable to reach for PVP screening, LVM) to be completed in office ) 06/17/2025 Refill [facility] [address] [place] [phone] Rosemarie Murillo MD Chronic recurrent major depressive disorder (CMS/HCC) 06/10/2025 Refill [facility] [address] [place] [address] Rosemarie Murillo MD Cervical radiculitis 06/07/2025 Orders Only [facility] External Provider, [facility] 05/24/2025 Refill [facility] [address] [place] [address] Rosemarie Murillo MD Chronic midline thoracic back pain 05/22/2025 Telephone [facility] [address] [place] [address] Rosemarie Murillo MD Nurse Triage 05/16/2025 Telephone [facility] [address] [place], [place] [phone] Rosemarie Murillo MD Prior Authorization 05/16/2025 Refill [facility] [address] [place] [address] Rosemarie Murillo MD Cervical radiculitis from Last 3 Months Immunizations Immunization Administration Dates Next Due Influenza Injectable Quadriv alant Preservative Free IIV4 MDCK 07/22/2022 Influenza injectable quadriv alent preservative free 06/06/2023,06/22/2021,06/28/2019,07/12,06/11/2017,06/21/2016 Influenza, High Dose Seasona l, Preservative Free 06/08/2025,06/22/2024,06/07/2017 Influenza, IIV3, injectable 06/04/2014,1 ,07/27/2010,06/07,06/26/2008 Influenza, Split [...] drink = 0.6 oz pur e alcohol) Alcohol Answer Date Recorded Frequency of Alcohol Consumption Not on file 06/22/2024 Average Number of Drinks Not on file 024 Frequency of Binge Drinking Not on file 05/28 Score 0 06/22/2024 Depression Answer Date Recorded Patient Health Questionnaire-9 Score 7 06/25/2025 Patient Health Questionnaire-9 Score 7 06/25/2025 Last PHQ-9: Questionnaire Data Not on file 0 06/25/2025 Housing Stability Answer Date Recorded What is your housing situation today? I have jevon jones 06/25/[address] you li ve. Do you have problems with any of the following? None of the above 06/25/2025 Food Insecurity Answer Date Recorded Within the past 12 months, y ou worried that your food would run out before you got money to buy more: Never True 06/25/2025 Within the past 12 months,th e food you bought just didn't last and you didn't have enough money to get more: Never True Transportation Answer Date Recorded In the past 12 months, has l ack of transportation kept you from medical appts, meetings, work or from getting things needed for daily living? No 06/25/2025 Utilities Answer Date Recorded In the past 12 months, has t he electric, gas, oil or water company threatened to shut off services in your home? No 06/25/2025 Depression Answer Date Recorded Patient Health Questionnaire-2 Score 1 06/25/2025 Internet Access Answer Date Recorded Internet Access Q1 Yes 06/25/2025 Internet Access Q2 Not on file 06/25/2025 Comments Unknown Sex and Gender Information Value Date Recorded Sex Assigned at Female 07/26/2022 10:19 AM EDT Legal Sex Female 10:19 AM EDT Gender Identity Female 07/26/2022 10:19 AM EDT Sexual Orientation Straight 07/26/2022 10 :19 AM EDT Last Filed Vital Signs Vital Sign Reading Time Taken Comments Blood Pressure 136/78 07/18/2025 10:38 AM EDT Pulse 87 07/18/2025 10:38 AM EDT Temperature 36.7 C (98 F) 07/18/2025 10:38 AM EDT Respiratory Rate 12 07/18/2025 10:38 AM EDT Oxygen Saturation 96% 07/18/2025 10:38 AM EDT Inhaled Oxygen Concentration - - Weight 69 kg (152 lb 3.2 oz) 07/18/2025 10:38 AM EDT Height 167.6 cm (5' 6 ) 07/18/2025 10:38 AM EDT Body Mass Index 24.57 07/18/2025 10:38 AM EDT Plan of Treatment Upcoming Encounters Date Type Department Care Team (Late st Contact Info) Description 09/03/2025 1:00 PM EST Office Visit [facility] [address] [place] [address] Sumyaa Gonzalez [address] [place], [place] [phone] 10/09/2025 11:30 AM EST Clinical Support [facility] [address] [place] [address] Anjana Gramajo, RN Health Maintenance Due Date Last Done Comments CT Colonography 1959 Colonoscopy 1959 Colorectal Cancer Screening 1960 FIT DNA/Cologuard 1959 FIT 1959 FOBT 1960 Sigmoidoscopy 1959 Hepatitis A Vaccines (1 of 2 - Risk 2-dose series) 1978 Mammogram 1999 Hepatitis B Vaccines (1 of 3 - Risk 3-dose series) 2019 COVID-19 Vaccine ( - season) 2025 06/22/2024, 04/09/2022 Diabetes: Hemoglobin A1C 09/14/2025 09/14/2024 Alcohol/Substance Use Screening 06/25/2026 06/25/2025 Depression Screening 06/25/2026 06/25/2025, 06/25/20 25 SDOH Screening 06/25/2026 06/25/2025 Tobacco Screening 07/18/2026 07/18/2025 Lipid Panel 09/14/2029 09/14/2024, 09/14/2024 DTaP/Tdap/Td Vaccines (2 - Td or Tdap) 08/09/2035 08/09/2025, 05/12/2007 Pneumococcal Vaccine: 50+ Years Completed 07/22/2022, 07/12/2018, 06/04/2014, Additional history exists Zoster Vaccines Completed 11/08/2022, 05/27, 03/05/2015 RSV Patients and Patients Aged 60 years or older Completed 06/06/2023 Hepatitis C Screening Completed 12/28/2024 Influenza Vaccine Completed 06/08/2025, , 06/06/2023, Additional history exists HIB Vaccines Aged Out No longer eligi ble based on patient's age to complete this topic HPV Vaccines Aged Out No longer eligi ble based on patient's age to complete this topic IPV Vaccines Aged Out No longer eligi ble based on patient's age to complete this topic Meningococcal B Vaccine Aged Out No l onger eligible based on patient's age to complete [...] Procedure Name Priority Date/Time Associated Diagnosis Comments POCT STARR-14 URINE DRUG SCREEN Routine 07/02/2025 11:45 AM EDT 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 CT ABDOMEN PELVIS W CONTRAST Routine 06/07/2025 7:24 PM EDT HEPATITIS PANEL, GENERAL Routine 12/28/2024 12:42 PM EDT Generalized abdominal pain Encounter for screening for other viral diseases HEMOGLOBIN A1C Routine 09/14/2024 2:03 PM EST Primary hypertension Encounter for screening for diabetes mellitus LIPID PANEL, STANDARD Routine 09/14/2024 2:03 PM EST Primary hypertension from Last 3 Months or Most Recently Relevant to Health Maintenance Results * (ABNORMAL) POCT STARR-14 Urine Drug Screen (07/02/2025 11:45 AM EDT) THC Negative Negative Cocaine Screen, Urine Negative Negative Opiate Screen, Urine Positive(A) Negative Comment:SENIOR SOFTWARE QA ENGINEER pt, on MS Contin Methamphetamine Screen Urine Negative Negative Amphetamine Screen, Urine Negative Negative Benzodiazepines Screen, Urine Negative Negative Barbiturate Screen, Urine Negative Negative Methadone Screen, Urine Negative Negative Buprenophine Screen, Urine Negative Negative TCA, Urine Negative Negative MDMA Urine Negative Negative ng/mL Oxycodone Screen, Urine Positive(A) Negative Comment:SENIOR SOFTWARE QA ENGINEER pt, on oxycodone Phencyclidine (PCP), Urine Negative Negative Propoxyphene, Urine Negative Negative Fentanyl, Urine Negative Negative Urine Urine specimen obtained by clean catch procedure / Unknown 07/02/2025 11:45 AM EDT Narrative Anjana Gramajo RN - 07/02/2025 11:45 AM EDT UTOX cup Lot#[id number] Exp. 07/02/26 Internal Pass Control Rosemarie Durham MD POINT OF CARE TEST EN TER/EDIT ORDERABLES Final Result * CT Abdomen Pelvis w/ Contrast (06/07/2025 7:24 PM EDT) Anatomical Region Laterality Modality Body, Pelvis, Abdomen Computed T omography 06/07/2025 7:24 PM EDT Narrative 06/07/2025 7:25 PM EDT [place] [address] CT Scan Report Signed Patient: Neelima Holloway MR#: [id number] : 1960 Acct:[id number] Age/Sex: 65 / F ADM Date: 06/07/25 Loc: HO.CT Attending Dr: Dominik Tanner MD Ordering Physician: Dominik Tanner MD Date of Service: 06/07/25 Procedure(s): CT abdomen pelvis w IV con Accession Number(s): [id number] cc: Rosemarie Murillo MD; Dominik Tanner MD Report Number: [id number]: Total DLP = 436.00 mGy-cm Reason for Exam: R10.11 - Right upper quadrant pain CLINICAL HISTORY: R10.11 - Right upper quadrant pain --- Additional Notes or Special Instructions: Pt states she is allergic to ORAL contrast but can take the IV contrast CT abdomen and pelvis with contrast Comparison: None provided Findings: The lung bases are clear. Cholecystectomy clips. Pneumobilia. Solid organs are within normal limits. No bowel obstruction, pneumoperitoneum, or pneumatosis. Pelvic contents unremarkable. Appendix is not seen. The bones are intact. IMPRESSION: No acute findings. This document has been electronically signed by: Toshia Molina MD on 06/07/2025 19:24:11 Dictated By: Toshia Molina MD Signed By: <Electronically signed by Toshia Molina MD in OV> 06/07/251924 DD/ 23 TD/TT: 06/07/251923 Real Estate Specialist: Procedure Note Donotuseinterpreter, Image - 06/07/[address] [place] [address] [address] Scan Report Signed Patient: Neelima Holloway [facility]#: [id number] : 9Acct:[id number] Age/Sex: 65 / FADM Date: 06/07/25 Loc: HO.CT Attending Dr: Dominik Tanner MD Ordering Physician: Dominik Tanner MD Date of Service: 06/07/25 Procedure(s): CT abdomen pelvis w IV con Accession Number(s): [id number] cc: Rosemarie uMrillo MD; Dominik Tanner MD Report Number: [id number]: Total DLP = 436.00 mGy-cm Reason for Exam: R10.11 - Right upper quadrant pain CLINICAL HISTORY: R10.11 - Right upper quadrant pain --- Additional Notesor Special Instructions: Pt states she is allergic to ORAL contrast but can take the IV contrast CT abdomen and pelvis with contrast Comparison: None provided Findings: The lung bases are clear. Cholecystectomy clips. Pneumobilia. Solid organs are within normal limits. No bowel obstruction, pneumoperitoneum, or pneumatosis. Pelvic contents unremarkable. Appendix is not seen. The bones are intact. IMPRESSION: No acute findings. This document has been electronically signed by: Toshia Molina MD on 06/07/2025 19:24:11 Dictated By: Toshia Molina MD Signed By: <Electronically signed by Toshia Molina MD in OV> 06/07/251924 DD/ 23 TD/TT: 06/07/251923 Real Estate Specialist: [facility] External Provider IMG CT PROCEDURES Final Result * Hepatitis Panel, General (12/28/2024 12:42 PM EDT) Hepatitis A IgM Nonreactive Nonreactive [facility] Comment:IgM antibodies to NEELY V not detected; does not exclude earlyacute or recovered HAV infection. ~Hepatitis B Surface Antibody NONREACTIVE Nonreactive [facility] Comment:Nonreactive: < 8.00 mIU/mL Hepatitis B Core Antibody Nonreactive Nonreactive [facility] Hepatitis C Antibody Nonreactive Nonreactive [facility] Comment:Antibodies to HCV no t detected; does not exclude early acuteHCV infection. Hepatitis B Surface Ag Negative Negative [facility] Blood 12/28/2024 12:4 2 PM EDT 12/28/2024 4:07 PM EDT Sandra Zhao MD LAB BLOOD ORDERABLES Fin al Result [facility] [address] [place] [address] [phone] * Hemoglobin A1c (09/14/2024 2:03 PM EST) Hemoglobin A1c 5.7 <6.0 % [facility] Comment:Hemoglobin A1C Refer ence Range Adults: 4.8 - 6.0 % Non diabetic: < 6.0 % Goal: < 7.0 %Additional Action Suggested: > 8.0 %Note: Hemoglobin A1c results are invalid for patients with abnormal amounts of HbF. Blood transfusions may impact the HbA1c concentration in the patient sample. Estimated Average Glucose 117 mg/dL [facility] Comment:eAG = Estimated ave rage glucose which is %A1C expressed asaverage glucose, using the formula of the B2P-NtyvcojEtqhods Glucose study (ADAG), Diabetes Care, Vol.31,#8,Apr. 2007 Blood Venous blood specimen / Unknown 09/14/2024 2:03 PM EST 09/14/2024 4:07 PM EST us Rosemarie Durham MD LAB BLOOD ORDERABLES Final Result [facility] [address] [place] [phone] * Lipid Panel, Standard (09/14/2024 2:03 PM EST) Triglycerides 86 <150 mg/dL [facility] Comment:Desirable Triglyceri de: less than 150 mg/dLBorderline High Triglyceride 150-199 mg/dLHigh Triglyceride: 200-499 mg/dLVery High Triglyceride: greater than or equal to 5OO mg/dL Cholesterol 162 <200 mg/dL [facility] Comment:Desirable Cholestero l: less than 200 mg/dLBorderline High Cholesterol: 200-239 mg/dLHigh Cholesterol: greater than 239 mg/dL LDL Cholesterol Calculated 88 <100 mg/dL [facility] Comment:Desirable LDL: less than 100 mg/dLNear Optimal/Above Optimal LDL: 110- 129 mg/dLBorderline High LDL: 130-159 mg/dLHigh LDL: 160-189 mg/dLVery High LDL: greater than or equal to 190 mg/dL HDL Cholesterol 57 >40 mg/dL [facility] Comment:Desirable HDL: great er than 40 mg/dL Note: This HDL assay may give artificially low results in patients with liver disease. Blood Venous blood specimen / Unknown 09/14/2024 2:03 PM EST 09/14/2024 4:07 PM EST us Rosemarie Durham MD LAB BLOOD ORDERABLES Final Result [facility] [address] [place] [address] [phone] from Last 3 Months or Most Recently Relevant to Health Maintenance Insurance MEDICARE Member Subscriber Plan / Payer (Ef fective 2008-Present) Name:Neelima Holloway Member ID:[id number] Relation to Subscriber:Self Name:JewelNeelima Subscriber ID:[id number] Payer ID:STATE Group ID:Not on file Type:Medicare Address: [facility] [address] [address] [facility] STANDARD HSN FULL DENTAL - HSN FULL (MEDICAID) Care Teams Estate Conservator Relationship Specialty Start Date End Date Rosemarie Murillo MD [address] [place] [phone] PCP - General Family Medicine 04/26/19
--- OUTSIDE RECORDS SUMMARY | 2025-08-15 20:23 | XMS_ITS | Encounter Summary ---
Author Organization [employer] Address [address] [facility] [address] [place] [address] Care Team Providers Care Or Rn Name Role Phone Rosemarie Murillo MD Primary Care Provide r Reason for Visit * Reason Onset Date Comments Med Refill 03/26/2024 Encounter Details Date Type Department Care Team (Late st Contact Info) Description 03/26/2024 Refill [facility] [address] [place], [place] [phone] Rosemarie Murillo MD [address] [place] [address] Cervical radiculitis Social History Tobacco Use Types [...] Description 09/03/2025 1:00 PM EST Office Visit [facility] [address] [place] [address] Sumaya Gonzalez [address] [place] [address] 10/09/2025 11:30 AM EST Clinical Support [facility] [address] [place] [address] Anjana Gramajo, SHERRI documented as of this encounter Visit Diagnoses Diagnosis Cervical radiculitis Brachial neuritis or radiculitis nos documented in this encounter Care Teams Or Rn Relationship Specialty Start Date End Date Rosemarie Murillo MD [address] [place] [address] PCP - General Family Medicine 04/26/19 documented as of this encounter
--- OUTSIDE RECORDS SUMMARY | 2025-08-15 20:23 | XMS_ITS | Encounter Summary ---
Author Organization [employer] Address [address] [place] [address] 7 [place] [address] Care Team Providers Care Heel Attacher Wood Name Role Phone Rosemarie Murillo MD Primary Care Provide r Reason for Visit * Reason Onset Date Comments returning call 09/21/2022 Encounter Details Date Type Department Care Team (Late st Contact Info) Description 09/21/2022 Telephone [facility] MEDICINE 230 [place], [place] [phone] Rosemarie Murillo MD 230 [place] [address] returning call Social History Tobacco Use Types [...] documented in this encounter Plan of Treatment Upcoming Encounters Date Type Department Care Team (Late st Contact Info) Description 09/03/2025 1:00 PM EST Office Visit [facility] DENTAL 91 [place] [address] Sumaya Gonzalez 91 [place], [place] [phone] 10/09/2025 11:30 AM EST Clinical Support [facility] 230 [place], [place] [phone] Anjana Gramajo RN documented as of this encounter Visit Diagnoses Not on filedocumented in this encounter Care Teams Heel Attacher Wood Relationship Specialty Start Date End Date Rosemarie Murillo MD 230 [place] [address] PCP - General Family Medicine 04/26/19 documented as of this encounter
--- OUTSIDE RECORDS SUMMARY | 2025-08-15 20:23 | XMS_ITS | Encounter Summary ---
Author Organization [employer] Address [address] [place] [address] 7t [place] [address] Care Team Providers Care Casino Cashier Name Role Phone Rosemarie Murillo MD Primary Care Provide r Reason for Visit * Reason Onset Date Comments Referral 01/13/2024 Encounter Details Date Type Department Care Team ([facility] st Contact Info) Description 01/13/2024 Telephone [facility] MEDICINE 230 [place], [place] [phone] Rosemarie Murillo MD 230 [place] [address] Referral Social History Tobacco Use Types Packs/Day [...] Please send US order from yesterday to [facility] if possible, thank you! * Telephone Encounter - Alexandra Blum - 01/13/2024 10:53 AM EDT Tc from pt calling in to check on referral for radiology . Pt was referral to [facility] but pt informs was supposed to be sent to [facility]. Pt would like a call back . documented in this encounter Plan of Treatment Upcoming Encounters Date Type Department Care Team (Late st Contact Info) Description 09/03/2025 1:00 PM EST Office Visit [facility] 91 [place] [address] Sumaya Gonzalez 91 [place] [address] 10/09/2025 11:30 AM EST Clinical Support [facility] MEDICINE [address] [place] [address] [phone] Anjana Gramajo RN documented as of this encounter Visit Diagnoses Not on filedocumented in this encounter Care Teams Casino Cashier Relationship Specialty Start Date End Date Rosemarie Murillo MD [address] [place] [address] PCP - General Family Medicine 04/26/19 documented as of this encounter
--- OUTSIDE RECORDS SUMMARY | 2025-08-15 20:23 | XMS_ITS | Encounter Summary ---
Author Organization [employer] Address 75 [facility] 7t [place] [address] Care Team Providers Care Resource Recovery Specialist Name Role Phone Rosemarie Murillo MD Primary Care Provide r Encounter Details Date Type Department Care Team (Late st Contact Info) Description 11/11/2022 Orders Only [facility] MEDICINE 230 [place], [place] [phone] Sandra Zhao MD 230 [place] [address] Age related osteoporosis, unspecified pathological fracture presence [...] Description 09/03/2025 1:00 PM EST Office Visit [facility] D[facility] [address] [place] [address] [phone] Sumaya Gonzalez [address] [place] [phone] 10/09/2025 11:30 AM EST Clinical Support [facility] MEDICINE 230 [place] [address] Anjana Gramajo RN Scheduled Orders Name Type Priority Associated Diagnoses Orde r Schedule Vitamin D, 25-Hydroxy, Total, Immunoassay Lab Routine Age related osteoporosis, unspecified pathological fracture presence Expected: 05/11/2023, Expires: 11/11/2023 documented as of this encounter Visit Diagnoses Diagnosis Age related osteoporosis, unspecified pathological fracture presence- Primary documented in this encounter Care Teams Resource Recovery Specialist Relationship Specialty Start Date End Date Rosemarie Murillo MD 230 [place] [address] PCP - General Family Medicine 04/26/19 documented as of this encounter
--- OUTSIDE RECORDS SUMMARY | 2025-08-15 20:23 | XMS_ITS | Encounter Summary ---
Author Organization [employer] Address 75 [facility] 7t [place] [address] Care Team Providers Care Extruder Operator Horizontal Name Role Phone Rosemarie Murillo MD Primary Care Provide r Encounter Details Date Type Department Care Team ([facility] st Contact Info) Description 07/17/2024 Orders Only [facility] MEDICINE 230 [place], [place] [phone] Rosemarie Murillo MD 230 [place] [address] Social History Tobacco Use Types Packs/Day Years [...] Description 09/03/2025 1:00 PM EST Office Visit [facility] DENTAL 91 [place], [place] [phone] Sumaya Gonzalez 91 [place] [address] 10/09/2025 11:30 AM EST Clinical Support [facility] MEDICINE 230 [place], [place] [phone] Anjana Gramajo RN documented as of this encounter Visit Diagnoses Not on filedocumented in this encounter Care Teams Extruder Operator Horizontal Relationship Specialty Start Date End Date Rosemarie Murillo MD 230 [place], [place] [phone] PCP - General Family Medicine 04/26/19 documented as of this encounter
--- OUTSIDE RECORDS SUMMARY | 2025-08-15 20:23 | XMS_ITS | Encounter Summary ---
Author Organization [employer] Address [address] [place] [address] 7 [place] [address] Care Team Providers Care Resourcing Advisor Name Role Phone Rosemarie Murillo MD Primary Care Provide r Encounter Details Date Type Department Care Team (Late st Contact Info) Description 09/14/2022 Orders Only [facility] [address] [place] [phone] Sandra Zhao MD [address] [place] [address] [phone] Social History Tobacco Use Types Packs/Day Years [...] Description 09/03/2025 1:00 PM EST Office Visit [facility] D[facility]AL [address] [place] [address] [phone] Sumaya Gonzalez 91 [place], [place] [phone] 10/09/2025 11:30 AM EST Clinical Support [facility] MEDICINE [address] [place] [address] [phone] Anjana Gramajo RN documented as of this encounter Visit Diagnoses Not on filedocumented in this encounter Care Teams Resourcing Advisor Relationship Specialty Start Date End Date Rosemarie Murillo MD 230 [place] [address] PCP - General Family Medicine 04/26/19 documented as of this encounter
--- OUTSIDE RECORDS SUMMARY | 2025-08-15 20:23 | XMS_ITS | Encounter Summary ---
Author Organization [employer] Address [address] [place] [address] 7 [place] [address] Care Team Providers Care Mechanic Welder Name Role Phone Rosemarie Murillo MD Primary Care Provide r Reason for Referral * Consultation (Routine) - Canceled Specialty Diagnoses / Procedures Referred By Contac t Referred To Contact Pharmacy Diagnoses Abdominal pain, unspecified abdominal location Nafisa Vogt PharmD 230 [place] [address] Phone: tel: fax: Referral ID Status Reason Start Date Expiration Date V isits Requested Visits Authorized [id number] Canceled Continuity of Care 01/06/2024 01/05/2025 1 1 Encounter Details Date Type Department Care Team (Late st Contact Info) Description 01/06/2024 Orders Only [facility] MEDICINE 230 [place] [address] Nafisa Vogt, PharmD 230 [place] [address] Abdominal pain, unspecified abdominal location (Primary Dx) [...] Description 09/03/2025 1:00 PM EST Office Visit [facility] D[facility] 91 [place] [address] Sumaya Gonzalez 91 [place] [address] 10/09/2025 11:30 AM EST Clinical Support [facility] MEDICINE 230 [place] [address] Anjana Gramajo RN Scheduled Referrals Name Type Priority Associated Diagnoses Orde r Schedule Referral to Pharmacy [facility] Outpatient Referral Routine Abdominal pain, unspecified abdominal location Ordered: 01/06/2024 documented as of this encounter Visit Diagnoses Diagnosis Abdominal pain, unspecified abdominal location- Primary documented in this encounter Care Teams Mechanic Welder Relationship Specialty Start Date End Date Rosemarie Murillo MD [address] [place] [address] PCP - General Family Medicine 04/26/19 documented as of this encounter
--- OUTSIDE RECORDS SUMMARY | 2025-08-15 20:23 | XMS_ITS | Encounter Summary ---
Author Organization [employer] Address 75 [facility] 7t [place] [address] Care Team Providers Care Magento Web Developer Name Role Phone Rosemarie Murillo MD Primary Care Provide r Reason for Visit * Reason Onset Date Comments Med Refill 04/14/2025 Encounter Details Date Type Department Care Team (Late st Contact Info) Description 04/14/2025 Refill [facility] MEDICINE 230 [place] [address] Rosemarie Murillo MD 230 [place] [address] Cervical radiculitis Social History Tobacco Use Types [...] Description 09/03/2025 1:00 PM EST Office Visit [facility] DENTAL 91 [place] [address] Sumaya Gonzalez 91 [place] [address] 10/09/2025 11:30 AM EST Clinical Support [facility] MEDICINE 230 [place] [address] Anjana Gramajo, SHERRI documented as of this encounter Visit Diagnoses Diagnosis Cervical radiculitis Brachial neuritis or radiculitis nos documented in this encounter Care Teams Magento Web Developer Relationship Specialty Start Date End Date Rosemarie Murillo MD 230 [place] [address] PCP - General Family Medicine 04/26/19 documented as of this encounter
--- OUTSIDE RECORDS SUMMARY | 2025-08-15 20:23 | XMS_ITS | Encounter Summary ---
Author Organization [employer] Address 75 [facility] 7t [place] [address] Care Team Providers Care Tail End Rider Name Role Phone Rosemarie Murillo MD Primary Care Provide r Reason for Visit * Reason Onset Date Comments Med Refill 10/07/2023 Encounter Details Date Type Department Care Team ([facility] st Contact Info) Description 10/07/2023 Telephone [facility] MEDICINE 230 [place], [place] [phone] Rosemarie Murillo MD 230 [place] [address] Med Refill Social History Tobacco Use Types [...] 1:08 PM EST Medication was sent to [id number] on 06/21/23 with 11 refills. * Telephone Encounter - Shila Santos - 10/07/2023 12:13 PM EST TC from pt requesting medication refill. Medications needing refill : amLODIPine (Norvasc) 5 MG tablet To be sent to: [facility]/pharmacy #[id number] - [address] documented in this encounter Plan of Treatment Upcoming Encounters Date Type Department Care Team (Late st Contact Info) Description 09/03/2025 1:00 PM EST Office Visit [facility] 91 [place] [address] Sumaya Gonzalez 91 [place] [address] 10/09/2025 11:30 AM EST Clinical Support [facility] MEDICINE 230 [place], [place] [phone] Anjana Gramajo RN documented as of this encounter Visit Diagnoses Not on filedocumented in this encounter Care Teams Tail End Rider Relationship Specialty Start Date End Date Rosemarie Murillo MD 230 [place], [place] [phone] PCP - General Family Medicine 04/26/19 documented as of this encounter
--- OUTSIDE RECORDS SUMMARY | 2025-08-15 20:23 | XMS_ITS | Encounter Summary ---
Author Organization [employer] Address 75 [facility] 7t [place] [address] Care Team Providers Care Signing Teacher Name Role Phone Rosemarie Murillo MD Primary Care Provide r Reason for Visit * Reason Onset Date Comments Med Refill 04/25/2024 Encounter Details Date Type Department Care Team (Late st Contact Info) Description 04/25/2024 Refill [facility] MEDICINE 230 [place], [place] [phone] Rosemarie Murillo MD 230 [place] [address] Cervical radiculitis Social History Tobacco Use Types [...] Description 09/03/2025 1:00 PM EST Office Visit [facility] DENTAL 91 [place] [address] Sumaya Gonzalez 91 [place] [address] 10/09/2025 11:30 AM EST Clinical Support [facility] MEDICINE 230 [place] [address] Anjana Gramajo, SHERRI documented as of this encounter Visit Diagnoses Diagnosis Cervical radiculitis Brachial neuritis or radiculitis nos documented in this encounter Care Teams Signing Teacher Relationship Specialty Start Date End Date Rosemarie Murilol MD 230 [place] [address] PCP - General Family Medicine 04/26/19 documented as of this encounter
--- OUTSIDE RECORDS SUMMARY | 2025-08-15 20:23 | XMS_ITS | Encounter Summary ---
Author Organization [employer] Address 75 [facility] 7t [place] [address] Care Team Providers Care Metal Refiner Name Role Phone Rosemarie Murillo MD Primary Care Provide r Reason for Visit * Reason Onset Date Comments Med Refill 10/03/2024 Encounter Details Date Type Department Care Team (Late st Contact Info) Description 10/03/2024 Refill [facility] MEDICINE 230 [place], [place] [phone] Sandra Zhao MD 230 [place] [address] Cervical radiculitis Social History Tobacco Use Types [...] Description 09/03/2025 1:00 PM EST Office Visit [facility] DENTAL 91 [place] [address] Sumaya Gonzalez 91 [place] [address] 10/09/2025 11:30 AM EST Clinical Support [facility] MEDICINE [address] [place] [address] Anjana Gramajo, SHERRI documented as of this encounter Visit Diagnoses Diagnosis Cervical radiculitis Brachial neuritis or radiculitis nos documented in this encounter Care Teams Metal Refiner Relationship Specialty Start Date End Date Rosemarie Murillo MD 230 [place] [address] PCP - General Family Medicine 04/26/19 documented as of this encounter
--- OUTSIDE RECORDS SUMMARY | 2025-08-15 20:23 | XMS_ITS | Encounter Summary ---
Author Organization [employer] Address 75 [facility] 7t [place] [address] Care Team Providers Care Machine Umbrella Tipper Name Role Phone Rosemarie Murillo MD Primary Care Provide r Reason for Visit * Reason Onset Date Comments Med Refill 10/30/2024 Encounter Details Date Type Department Care Team (Late st Contact Info) Description 10/30/2024 Refill [facility] MEDICINE 230 [place], [place] [phone] Rosemarie Murillo MD 230 [place] [address] Primary hypertension Social History Tobacco Use Types [...] Description 09/03/2025 1:00 PM EST Office Visit [facility] DENTAL 91 [place] [address] Sumaya Gonzalez 91 [place] [address] 10/09/2025 11:30 AM EST Clinical Support [facility] MEDICINE [address] [place] [address] Anjana Gramajo, SHERRI documented as of this encounter Visit Diagnoses Diagnosis Primary hypertension Unspecified essential hypertension documented in this encounter Care Teams Machine Umbrella Tipper Relationship Specialty Start Date End Date Rosemarie Murillo MD 230 [place] [address] PCP - General Family Medicine 04/26/19 documented as of this encounter
--- OUTSIDE RECORDS SUMMARY | 2025-08-15 20:23 | XMS_ITS | Encounter Summary ---
Author Organization [employer] Address 75 [facility] 7t [place] [address] Care Team Providers Care Surtass Analyst Name Role Phone Rosemarie Murillo MD Primary Care Provide r Reason for Visit * Reason Onset Date Comments Med Refill 01/24/2025 Encounter Details Date Type Department Care Team (Late st Contact Info) Description 01/24/2025 Refill [facility] MEDICINE 230 [place], [place] [phone] Rosemarie Murillo MD 230 [place] [address] Cervical radiculitis Social History Tobacco Use Types [...] Description 09/03/2025 1:00 PM EST Office Visit [facility] DENTAL 91 [place] [address] Sumaya Gonzalez 91 [place] [address] 10/09/2025 11:30 AM EST Clinical Support [facility] MEDICINE 230 [place] [address] Anjana Gramajo, SHERRI documented as of this encounter Visit Diagnoses Diagnosis Cervical radiculitis Brachial neuritis or radiculitis nos documented in this encounter Care Teams Surtass Analyst Relationship Specialty Start Date End Date Rosemarie Murillo MD 230 [place] [address] PCP - General Family Medicine 04/26/19 documented as of this encounter
--- OUTSIDE RECORDS SUMMARY | 2025-08-15 20:23 | XMS_ITS | Encounter Summary ---
Author Organization [email or web address] Address [address] [place] [address] 7t [place] [address] Care Team Providers Care Door Core Assembler Name Role Phone Rosemarie Murillo MD Primary Care Provide r Reason for Visit * Reason Onset Date Comments status 10/20/2022 Encounter Details Date Type Department Care Team (Late st Contact Info) Description 10/20/2022 Refill [facility] MEDICINE 230 [place] [address] Rosemarie Murillo MD 230 [place] [address] Cervical radiculitis Social History Tobacco Use Types [...] Description 09/03/2025 1:00 PM EST Office Visit [facility] DENTAL [address] [place] [address] [phone] Sumaya Gonzalez [address] [place] [address] 10/09/2025 11:30 AM EST Clinical Support [facility] MEDICINE 230 [place] [address] Anjana Gramajo RN documented as of this encounter Visit Diagnoses Diagnosis Cervical radiculitis Brachial neuritis or radiculitis nos documented in this encounter Care Teams Door Core Assembler Relationship Specialty Start Date End Date Rosemarie Murillo MD 230 [place] [address] PCP - General Family Medicine 04/26/19 documented as of this encounter
--- OUTSIDE RECORDS SUMMARY | 2025-08-15 20:23 | XMS_ITS | Encounter Summary ---
Author Organization [employer] Address 75 [facility] 7t [place] [address] Care Team Providers Care Manager Company Name Role Phone Rosemarie Murillo MD Primary Care Provide r Reason for Visit * Reason Onset Date Comments Med Refill 08/10/2024 Encounter Details Date Type Department Care Team (Late st Contact Info) Description 08/10/2024 Refill [facility] MEDICINE 230 [place] [address] Rosemarie Murillo MD 230 [place] [address] Cervical radiculitis Social History Tobacco Use Types [...] Description 09/03/2025 1:00 PM EST Office Visit [facility] DENTAL 91 [place] [address] Sumaya Gonzalez 91 [place] [address] 10/09/2025 11:30 AM EST Clinical Support [facility] MEDICINE 230 [place] [address] Anjana Gramajo, SHERRI documented as of this encounter Visit Diagnoses Diagnosis Cervical radiculitis Brachial neuritis or radiculitis nos documented in this encounter Care Teams Manager Company Relationship Specialty Start Date End Date Rosemarie Murillo MD 230 [place] [address] PCP - General Family Medicine 04/26/19 documented as of this encounter
--- OUTSIDE RECORDS SUMMARY | 2025-08-15 20:23 | XMS_ITS | Encounter Summary ---
Author Organization [employer] Address 75 [facility] 7t [place] [address] Care Team Providers Care Pizza Baker Name Role Phone Rosemarie Murillo MD Primary Care Provide r Reason for Visit * Reason Onset Date Comments Hospital Follow-up 01/02/2024 Encounter Details Date Type Department Care Team ([facility] st Contact Info) Description 01/02/2024 Telephone [facility] MEDICINE 230 [place], [place] [phone] Rosemarie Murillo MD 230 [place] [address] Hospital Follow-up Social History Tobacco Use Types [...] from pt requesting a HDF appt. Hospital: [facility] Date of admission: 12/21 Discharge date: 12/29 Diagnosed: Multiple Conditions documented in this encounter Plan of Treatment Upcoming Encounters Date Type Department Care Team (Late st Contact Info) Description 09/03/2025 1:00 PM EST Office Visit [facility] DENTAL 91 [place], [place] [phone] Sumaya Gonzalez 91 [place], [place] [phone] 10/09/2025 11:30 AM EST Clinical Support [facility] MEDICINE 230 [place] [address] Anjana Gramajo RN documented as of this encounter Visit Diagnoses Not on filedocumented in this encounter Care Teams Pizza Baker Relationship Specialty Start Date End Date Rosemarie Murillo MD 230 [place], [place] [phone] PCP - General Family Medicine 04/26/19 documented as of this encounter
--- OUTSIDE RECORDS SUMMARY | 2025-08-15 20:23 | XMS_ITS | Encounter Summary ---
Author Organization [employer] Address 75 [facility] 7t [place] [address] Care Team Providers Care B2B Account Executive Name Role Phone Rosemarie Murillo MD Primary Care Provide r Reason for Visit * Reason Onset Date Comments Med Refill 12/28/2024 Encounter Details Date Type Department Care Team (Late st Contact Info) Description 12/28/2024 Refill [facility] MEDICINE 230 [place] [address] Rosemarie Murillo MD 230 [place] [address] Cervical radiculitis Social History Tobacco Use Types [...] 1:00 PM EST Office Visit [facility] DENTAL 91 [place] [address] Sumaya Gonzalez 91 [place] [address] 10/09/2025 11:30 AM EST Clinical Support [facility] MEDICINE 230 [place] [address] Anjana Gramajo, SHERRI documented as of this encounter Visit Diagnoses Diagnosis Cervical radiculitis Brachial neuritis or radiculitis nos documented in this encounter Care Teams B2B Account Executive Relationship Specialty Start Date End Date Rosemarie Murillo MD 230 [place] [address] PCP - General Family Medicine 04/26/19 documented as of this encounter
--- OUTSIDE RECORDS SUMMARY | 2025-08-15 20:23 | XMS_ITS | Encounter Summary ---
Author Organization [employer] Address 75 [facility] 7t [place] [address] Care Team Providers Care Complex Human Resources Manager Name Role Phone Rosemarie Murillo MD Primary Care Provide r Reason for Visit * Reason Onset Date Comments Med Refill 02/19/2025 Encounter Details Date Type Department Care Team ([facility] st Contact Info) Description 02/19/2025 Telephone [facility] MEDICINE 230 [place], [place] [phone] Rosemarie Murillo MD 230 [place] [address] Med Refill Social History Tobacco Use Types [...] * Telephone Encounter - Adolfo Dale - 02/19/2025 9:38 AM EDT TC from pt requesting medication refill. Medications needing refill: oxyCODONE (Roxicodone) 10 MG immediate release tablet morphine CR (MS Contin) 30 MG 12 hr tablet To be sent to: [facility]/pharmacy #[address] [place] [address] documented in this encounter Plan of Treatment Upcoming Encounters Date Type Department Care Team (Late st Contact Info) Description 09/03/2025 1:00 PM EST Office Visit [facility] DENTAL 91 [place], [place] [phone] Sumaya Gonzalez 91 [place] [address] 10/09/2025 11:30 AM EST Clinical Support [facility] MEDICINE 230 [place], [place] [phone] Anjana Gramajo RN documented as of this encounter Visit Diagnoses Not on filedocumented in this encounter Care Teams Complex Human Resources Manager Relationship Specialty Start Date End Date Rosemarie Murillo MD 230 [place], [place] [phone] PCP - General Family Medicine 04/26/19 documented as of this encounter
--- OUTSIDE RECORDS SUMMARY | 2025-08-15 20:23 | XMS_ITS | Encounter Summary ---
Author Organization [employer] Address [address] [facility] [address] [place] [address] Care Team Providers Care Car Electronics Installer Name Role Phone Rosemarie Murillo MD Primary Care Provide r Reason for Visit * Reason Onset Date Comments Prior Authorization 05/16/2025 Encounter Details Date Type Department Care Team ([facility] st Contact Info) Description 05/16/2025 Telephone [facility] [address], [place] [phone] Rosemarie Murillo MD [address] [place] [address] Prior Authorization Social History Tobacco Use Types Packs/Day Years [...] encounter Miscellaneous Notes * Telephone Encounter - Robby Borrego - 05/16/2025 9:53 AM EDT TC from pt reports needing PA for morphine CR (MS Contin) 30 MG 12 hr tablet . documented in this encounter Plan of Treatment Upcoming Encounters Date Type Department Care Team (Late st Contact Info) Description 09/03/2025 1:00 PM EST Office Visit [facility] [address] [place] [address] Sumaya Gonzalez [address], [place] [phone] 10/09/2025 11:30 AM EST Clinical Support [facility] [address] [place] [address] Anjana Gramajo, SHERRI documented as of this encounter Visit Diagnoses Not on filedocumented in this encounter Care Teams Car Electronics Installer Relationship Specialty Start Date End Date Rosemarie Murillo MD [address] [place] [phone] PCP - General Family Medicine 04/26/19 documented as of this encounter
== END ==
LOC: HO.CARD 14:53
PROVIDERS: PCP Internal Medicine; Visit Provider Nurse Practitioner Family
DX: R60.0 Localized edema (principal)
CPT/HCPCS: 93306; Q9957

== ENCOUNTER → 2025-08-15 14:56 | Outpatient (BNV) | payer MEDICARE, MEDICAID, SELFPAY | PROVIDERS: PCP Internal Medicine; Visit Provider Internal Medicine | DX: I51.89 Other ill-defined heart diseases (principal); I36.1 Nonrheumatic tricuspid (valve) insufficiency | CPT/HCPCS: 93306 ==